=== PATIENT | female | born 1970 | race Hispanic/Latino ===

== ENCOUNTER 2018-06-04 21:09 | Emergency (ER) | payer OTHER ==
[2018-06-04 21:21] VITALS: TEMP 98.6
[2018-06-04] MEDS ORDERED: DiphenhydrAMINE 50 mg/ml Inj IVP STA (21:51)
[2018-06-04] MEDS ORDERED: Lactated Ringer's 1,000 ML IV ONE (21:52)
[2018-06-04] MEDS ORDERED: DiphenhydrAMINE 50 mg/ml Inj ONE (21:58)
--- NOTE | 2018-06-04 22:00 | C.PDOC ---
History Of Present Illness 47 year old female presents to the ER with a complaint of headache and diarrhea for the past 2 days. Patient states she has had a left sided headache initially with multiple episodes of watery non-bloody diarrhea, she had 8 episodes that first day that resolved for a day then recurred. Patient reports she has also had associated with nausea, decreased appetite, subjective fever, lightheadedness, generalized malaise, and fatigue. She has been taking tylenol for the headache with mild relief and initially took imodium for the diarrhea with no relief, she then tried pepto with some relief. Denies chills, vomiting, abdominal pain, recent travel, recent sick contact, or recent use of antibiotics. Patient saw her PMD who advised her to come to the ER if symptoms worsen. PMHx: Negative Surgical Hx: nasal septum surgery Family Hx: HTN Social Hx: Nonsmoker, 1-2 glasses of wine daily, no substance abuse PMD: Dr. Gato Damon Time Seen by Provider: 06/04/18 21:27 Chief Complaint (Nursing): Headache History Per: Patient History/Exam Limitations: no limitations Onset/Duration Of Symptoms: Days (2) Current Symptoms Are (Timing): Still Present Preceeding Symptoms: None Associated Symptoms: Other (nausea, decreased appetite, subjective fever, lightheadedness, generalized malaise, and fatigue) Recent travel outside of the [place]: No Past Medical History Reviewed: Historical Data, Nursing Documentation, Vital Signs Vital Signs: Last Vital Signs Temp 98.6 F 06/04/18 21:15 Pulse 81 06/04/18 21:15 Resp 18 06/04/18 21:15 BP 164/100 H 06/04/18 21:15 Pulse Ox 99 06/04/18 21:15 - Medical History PMH: No Chronic Diseases Other Surgeries: Nasal septum surgery Family History: States: Unknown Family Hx - Social History Hx Tobacco Use: No Hx Alcohol Use: Yes (1-2 glasses of wine daily) Hx Substance Use: No - Immunization History Hx Tetanus Toxoid Vaccination: Yes Hx Influenza Vaccination: Yes Hx Pneumococcal Vaccination: No Review Of Systems Except As Marked, All Systems Reviewed And Found Negative. Constitutional: Positive for: Fever (Subjective), Malaise, Other (Decreased appetite, Fatigue) Cardiovascular: Positive for: Light Headedness Gastrointestinal: Positive for: Nausea, Diarrhea Neurological: Positive for: Headache Physical Exam - Physical Exam Appears: No Acute Distress, Other (Mild painful distress) Skin: Warm, Dry, Pale Head: Normacephalic, Tenderness Eye(s): bilateral: PERRL, EOMI Oral Mucosa: Dry Throat: Normal, No Erythema, No Exudate Neck: Normal ROM, Trachea Midline, Supple, Other (Tenderness to palpation along left posterior cervical chain and left trapezius. No meningismus.) Lymphatic: No Adenopathy Chest: Symmetrical Cardiovascular: Rhythm Regular, No Murmur Respiratory: No Normal Breath Sounds, No Wheezing Gastrointestinal/Abdominal: Soft, No Tenderness, No Mass, No Distention, No Guarding, No Rebound Back: Normal Inspection, No Decreased ROM Extremity: Normal ROM, No Deformity Neurological/Psych: Oriented x3, Normal Speech, Normal Motor, Normal Sensation ED Course And Treatment - Laboratory Results Result Diagrams: 06/04/18 22:06 06/04/18 22:06 O2 Sat by Pulse Oximetry: 99 (Room air) Pulse Ox Interpretation: Normal - CT Scan/US CT Head Other Rad Studies (CT/US): Read By Radiologist, Radiology Report Reviewed CT/US Interpretation: EXAM: CT Head Without IV contrast. CLINICAL HISTORY: HEADACHE. TECHNIQUE: Axial computed tomography images of the head/brain without intravenous contrast. 1018 mGy-cm. COMPARISON: None provided. FINDINGS: BRAIN. No acute intraparenchymal hemorrhage. No mass lesion. No CT evidence for acute territorial infarct. No midline shift or extra-axial collections. Bilateral basal ganglia calcifications are seen. VENTRICLES: No hydrocephalus. ORBITS: The orbits are unremarkable. SINUSES AND MASTOIDS: The paranasal sinuses and mastoid air cells are clear. BONES: No fracture. IMPRESSION: No acute intracranial abnormality. . Electronically signed on Jun 04, 2018 10:29:01 PM EDT by: Amadeo Rubio M.D., DHARMESH Certified By ABR & CBCCT. Fellowship Trained MRI and CT Specialist Medical Decision Making Medical Decision Making: Impression: Headache and Diarrhea. Differential diagnosis includes but not limited to: Viral syndrome, atypical migraine, dehydration, electrolyte abnormality, gastroenteritis. Progress: CT head Blood work Urinalysis Benadryl LR IV Reglan Tylenol 1130 CT no acute findings. Labs unremarkable On reeval pt feeling better and eager to go home DW pt findings and plan of care. Disposition - Disposition Referrals: Gato Damon [Medical Doctor] - Disposition: HOME/ ROUTINE Disposition Time: 23:20 Condition: IMPROVED Additional Instructions: FOLLOW UP WITH DR DAMON IN 24-48 HOURS FOR REEVALUATION Prescriptions: Ibuprofen [Motrin Tab] 600 mg PO Q8 PRN #30 tab PRN Reason: Pain, Moderate (4-7) Metoclopramide [Reglan] 1 tab PO TID PRN #15 tab PRN Reason: Nausea or Severe headache Saccharomyces Boulardi [Florastor] 500 mg PO BID #28 cap Instructions: Diarrhea in Adolescents and Adults, Headache, Adult (DC) Forms: Work Excuse - Clinical Impression Clinical Impression: Headache, Diarrhea - Scribe Statement The provider has reviewed the documentation as recorded by the Scribe Jared Lo All medical record entries made by the Scribe were at my direction and personally dictated by me. I have reviewed the chart and agree that the record accurately reflects my personal performance of the history, physical exam, medical decision making, and the department course for this patient. I have also personally directed, reviewed, and agree with the discharge instructions and d isposition.
[2018-06-04 22:12] LABS: SQUAMOUS EPITHIAL 4 /hpf (0-5); URINE BACTERIA RARE (<OCC); URINE BILIRUBIN NEGATIVE (NEGATIVE); URINE CLARITY Clear (Clear); URINE COLOR Straw (YELLOW); URINE GLUCOSE (UA) NORMAL (Normal); URINE LEUKOCYTE ESTERASE NEG Leu/uL (Negative); URINE PROTEIN NEGATIVE (NEGATIVE); URINE UROBILINOGEN NORMAL mg/dL (0.2-1.0)
[2018-06-04 22:13] LABS: HCG,QUALITATIVE URINE NEGATIVE (NEGATIVE); URINE BLOOD TRACE (NEGATIVE)
[2018-06-04 22:16] LABS: BASO % 0.4 % (0.0-2.0); EOS # 0.1 K/uL (0.0-0.7); EOS % 1.6 % (0.0-4.0); HEMOGLOBIN 13.9 g/dL (11.0-16.0); LYMPH # 1.7 K/uL (1.0-4.3); MEAN CELL VOLUME 88.7 fL (81.0-99.0); MEAN CORPUSCULAR HEMOGLOBIN 30.5 pg (27.0-31.0); MEAN CORPUSCULAR HGB CONC 34.4 g/dL (33.0-37.0); MEAN PLATELET VOLUME 8.8 fL (7.2-11.7); MONO # 0.6 K/uL (0.0-0.8); MONO % 10.3 % (0.0-10.0); NEUT % 56.7 % (50.0-75.0); NRBC % 0.1 % (0.0-2.0); RBC 4.56 Mil/uL (3.80-5.20); RED CELL DISTRIBUTION WIDTH 12.6 % (11.5-14.5); WHITE BLOOD COUNT 5.4 K/uL (4.8-10.8)
[2018-06-04 22:31] LABS: ALB/GLOB RATIO 1.5 (1.0-2.1); ALBUMIN 4.5 g/dL (3.5-5.0); ALT/SGPT 9 U/L (9-52); AST/SGOT 22 U/L (14-36); BLOOD UREA NITROGEN 10 mg/dL (7-17); CALCIUM 9.3 mg/dl (8.6-10.4); GFR NON-AFRICAN AMERICAN > 60; LIPASE 55 U/L (23-300)
[2018-06-04 23:04] VITALS: BP 148/79; PULSE 68; RESP 14
[2018-06-04 23:22] VITALS: O2SAT 99
--- NOTE | 2018-06-05 08:06 | CT ---
Date of service: 06/04/2018 PROCEDURE: CT HEAD WITHOUT CONTRAST. HISTORY: headache COMPARISON: None available. TECHNIQUE: Axial computed tomography images were obtained through the head/brain without intravenous contrast. Radiation dose: Total exam DLP = 1018.98 mGy-cm. This CT exam was performed using one or more of the following dose reduction techniques: Automated exposure control, adjustment of the mA and/or kV according to patient size, and/or use of iterative reconstruction technique. FINDINGS: HEMORRHAGE: No intracranial hemorrhage. BRAIN: No mass effect or edema. No atrophy or chronic microvascular ischemic changes. Bilateral basal ganglia calcifications. VENTRICLES: Unremarkable. No hydrocephalus. CALVARIUM: Small bony protuberance/exostosis emanating from the right frontal cranium. PARANASAL SINUSES: Unremarkable as visualized. No significant inflammatory changes. MASTOID AIR CELLS: Unremarkable as visualized. No inflammatory changes. OTHER FINDINGS: None. IMPRESSION: No acute intracranial abnormality. If symptoms persists, consider correlation with MRI. These findings were preliminarily reported at 10:29 p.m. on 06/04/[address] Amadeo Rubio from [employer].
== END 2018-06-04 23:56 | disposition home or self-care (01) ==
LOC: C.ER 21:09
DX: R51 Headache (principal); R19.7 Diarrhea, unspecified
CPT/HCPCS: 70450; 80053; 81001; 82948; 83605; 83690; 83735; 84100; 84703; 85025; 96361; 96374; 96375; 99285; J1200; J2765; J7120

== ENCOUNTER 2018-06-05 21:02 | Emergency (ER) | payer OTHER ==
[2018-06-05 21:10] VITALS: TEMP 97.5
[2018-06-05] MEDS ORDERED: DiphenhydrAMINE 50 mg/ml Inj IVP STA (22:11)
[2018-06-05] MEDS ORDERED: Sodium Chloride 0.9% 1,000 ML IV STA (22:11)
[2018-06-05] MEDS ORDERED: DiphenhydrAMINE 50 mg/ml Inj ONE (22:19)
[2018-06-05] MEDS ORDERED: Sodium Chloride 0.9% 1,000 ML ONE (22:20)
[2018-06-05 22:35] LABS: BASO % 0.4 % (0.0-2.0); EOS % 0.5 % (0.0-4.0); HEMOGLOBIN 14.4 g/dL (11.0-16.0); LYMPH # 0.9 K/uL (1.0-4.3); LYMPH % 12.8 % (20.0-40.0); MEAN CELL VOLUME 87.9 fL (81.0-99.0); MEAN CORPUSCULAR HEMOGLOBIN 30.3 pg (27.0-31.0); MEAN CORPUSCULAR HGB CONC 34.5 g/dL (33.0-37.0); MEAN PLATELET VOLUME 8.9 fL (7.2-11.7); MONO # 0.5 K/uL (0.0-0.8); MONO % 6.9 % (0.0-10.0); NEUT # 5.6 K/uL (1.8-7.0); NEUT % 79.4 % (50.0-75.0); NRBC % 0.1 % (0.0-2.0); RBC 4.77 Mil/uL (3.80-5.20); RED CELL DISTRIBUTION WIDTH 12.5 % (11.5-14.5)
--- NOTE | 2018-06-05 22:39 | C.PDOC ---
History Of Present Illness 47 year old female with no PMHx presents to the ER with a complaint of a headache for the past 4 days. Patient describes the pain is left sided and severe with photophobia, nausea, and vomiting. Initially the symptoms began with diarrhea but that has since resolved. Patient was seen here yesterday for the same symptoms, she states she felt "a little better" prior to discharge after ER treatment but headache continued today. Denies fever, nuchal rigidity, vision changes, recent travel, bloody diarrhea, or recent antibiotic use. Time Seen by Provider: 06/05/18 21:40 Chief Complaint (Nursing): Headache History Per: Patient History/Exam Limitations: no limitations Onset/Duration Of Symptoms: Days Current Symptoms Are (Timing): Still Present Quality: Other (Left sided, Severe) Associated Symptoms: Photophobia, Nausea, Vomiting Recent travel outside of the [place]: No Past Medical History Reviewed: Historical Data, Nursing Documentation, Vital Signs Vital Signs: Last Vital Signs Temp 97.5 F L 06/05/18 21:07 Pulse 84 06/05/18 21:07 Resp 14 06/05/18 21:07 BP 174/96 H 06/05/18 21:07 Pulse Ox 97 06/05/18 21:07 Family History: States: Unknown Family Hx - Social History Hx Tobacco Use: No Hx Alcohol Use: Yes (1-2 glasses of wine daily) Hx Substance Use: No - Immunization History Hx Tetanus Toxoid Vaccination: Yes Hx Influenza Vaccination: Yes Hx Pneumococcal Vaccination: No Review Of Systems Except As Marked, All Systems Reviewed And Found Negative. Eyes: Positive for: Other (Photophobia) Gastrointestinal: Positive for: Nausea, Vomiting Neurological: Positive for: Headache Physical Exam - Physical Exam Additional Physical Exam Comments: Constitutional: Uncomfortable appearing. Sitting in room with lights off. Head: Normocephalic. Atraumatic. Eyes: PERRL. ENT: Moist mucous membranes. Neck: Supple. Cardiovascular: Regular rate. Radial pulse 2+ bilaterally. Chest: No tenderness. Respiratory: Clear to auscultation bilaterally. GI: Soft. Nontender. Nondistended. Back: No CVA tenderness. Musculoskeletal: No tenderness or swelling of extremities. Skin: No rash. Neurologic: Alert, no focal deficit. Oriented x 3. Cranial nerves II-XII intact. Sensation to light touch intact bilaterally. Motor 5/5 x 4. Finger to nose, heel to pitts normal. ED Course And Treatment - Laboratory Results Result Diagrams: 06/05/18 22:30 06/05/18 22:30 O2 Sat by Pulse Oximetry: 97 (Room air) Pulse Ox Interpretation: Normal Medical Decision Making Medical Decision Making: Patient slept in ED for some time. States she feels better at this time and is comfortable to go home. Advised to f/u with neurology. Disposition - Disposition Referrals: Miguel Kendall MD [Staff Provider] - Disposition: HOME/ ROUTINE Disposition Time: 23:41 Condition: STABLE Instructions: Headache, Adult, Migraine Headaches in Adults Forms: [facility] ([place]), Work Excuse - Clinical Impression Clinical Impression: Headache - Scribe Statement The provider has reviewed the documentation as recorded by the Scribe Jared Lo All medical record entries made by the Scribe were at my direction and personally dictated by me. I have reviewed the chart and agree that the record accurately reflects my personal performance of the history, physical exam, medical decision making, and the department course for this patient. I have also personally directed, reviewed, and agree with the discharge instructions and disposition.
[2018-06-05 22:52] LABS: ALB/GLOB RATIO 1.5 (1.0-2.1); ALBUMIN 4.6 g/dL (3.5-5.0); ALT/SGPT 17 U/L (9-52); AST/SGOT 17 U/L (14-36); BLOOD UREA NITROGEN 9 mg/dL (7-17); CALCIUM 9.6 mg/dl (8.6-10.4); GFR NON-AFRICAN AMERICAN > 60; LIPASE 56 U/L (23-300)
[2018-06-05 23:23] VITALS: BP 144/87; PULSE 69; RESP 15
[2018-06-05 23:42] VITALS: O2SAT 97
== END 2018-06-05 23:48 | disposition home or self-care (01) ==
LOC: C.ER 21:02
DX: R51 Headache (principal)
CPT/HCPCS: 80053; 83690; 85025; 96361; 96374; 96375; 99285; J1200; J1885; J2765; J7030

== ENCOUNTER 2018-06-06 23:37 | Inpatient (IN) | payer OTHER ==
[2018-06-06] MEDS ORDERED: Iodixanol 320 MG/ML 100 ML BOTTLE IV ONE (23:51)
[2018-06-06 23:57] LABS: BASO # 0.1 K/uL (0.0-0.2); BASO % 1.3 % (0.0-2.0); EOS % 0.6 % (0.0-4.0); HEMOGLOBIN 14.5 g/dL (11.0-16.0); LYMPH # 1.9 K/uL (1.0-4.3); LYMPH % 29.8 % (20.0-40.0); MEAN CELL VOLUME 87.4 fL (81.0-99.0); MEAN CORPUSCULAR HEMOGLOBIN 30.4 pg (27.0-31.0); MEAN CORPUSCULAR HGB CONC 34.8 g/dL (33.0-37.0); MEAN PLATELET VOLUME 8.7 fL (7.2-11.7); MONO # 0.7 K/uL (0.0-0.8); MONO % 11.6 % (0.0-10.0); NEUT # 3.6 K/uL (1.8-7.0); NEUT % 56.7 % (50.0-75.0); RBC 4.77 Mil/uL (3.80-5.20); RED CELL DISTRIBUTION WIDTH 12.4 % (11.5-14.5); WHITE BLOOD COUNT 6.3 K/uL (4.8-10.8)
[2018-06-07 00:03] LABS: INR 1.1; PROTHROMBIN TIME 11.9 SECONDS (9.7-12.2)
[2018-06-07 00:10] LABS: ALB/GLOB RATIO 1.6 (1.0-2.1); ALBUMIN 4.8 g/dL (3.5-5.0); ALT/SGPT 19 U/L (9-52); AST/SGOT 16 U/L (14-36); BLOOD UREA NITROGEN 10 mg/dL (7-17); CALCIUM 9.7 mg/dl (8.6-10.4); GFR NON-AFRICAN AMERICAN > 60; HDL CHOLESTEROL 60 mg/dL (30-70)
[2018-06-07 00:21] LABS: B-TYPE NATRIURETIC PEPTIDE 384 pg/mL (0-450); CK-MB 0.55 ng/mL (0.0-3.38); LDL CHOLESTEROL 137 mg/dL (0-129)
--- NOTE | 2018-06-07 00:39 | CP.PCM.CON ---
History of Present Illness - History of Present Illness History of Present Illness: 47 year old female presents to [facility] with c/o right arm and right leg weakness and paresthesias (+)Started 30-40 minutes [employer](+) left sided headache associated with nausea. (+) headache intermittently x 2 days denies vomiting, change in vision, slurred speech, chest pain, or SOB. Pmx: denies Psurg hx: deneis Sh: denies smoking, quit 20 yrs ago, denies any drug use, works in book publishing Review of Systems - Review of Systems Review of Systems: (+)headaaches, (+) left arm weakness, all other systems nagative Past Patient History - Tetanus Immunizations Tetanus Immunization: Unknown - Past Social History Smoking Status: Never Smoked - CARDIAC Hx Cardiac Disorders: No - PULMONARY Hx Respiratory Disorders: No - NEUROLOGICAL Hx Neurological Disorder: No - PSYCHIATRIC Hx Psychophysiologic Disorder: Yes Hx Anxiety: Yes Hx Substance Use: No - SURGICAL HISTORY Hx Surgeries: No - ANESTHESIA Hx Anesthesia: No Meds Allergies/Adverse Reactions: Allergies Allergy/AdvReac Type Severity Reaction Status Date / Time tree nut Allergy Verified 06/06/18 23:41 Physical Exam - Head Exam Head Exam: ATRAUMATIC, NORMAL INSPECTION, NORMOCEPHALIC - Eye Exam Eye Exam: EOMI - ENT Exam ENT Exam: Mucous Membranes Moist - Respiratory Exam Respiratory Exam: Clear to Auscultation Bilateral, NORMAL BREATHING PATTERN - Cardiovascular Exam Cardiovascular Exam: REGULAR RHYTHM, +S1, +S2 - GI/Abdominal Exam GI & Abdominal Exam: Soft - Extremities Exam Extremities exam: Positive for: normal inspection - Expanded Upper Extremities Exam Right Shoulder exam: absent: ecchymosis Upper Arm exam: absent: dislocation - Neurological Exam Neurological exam: Alert, CN II-XII Intact, Oriented x3 Additional comments: right arm motor 0+, left arm 4+ motor - Skin Skin Exam: Normal Color Results - Labs Result Diagrams: 06/06/18 23:53 06/06/18 23:53 Labs: Laboratory Results - last 24 hr 06/06/18 06/06/18 06/06/18 23:43 23:52 23:53 WBC 6.3 RBC 4.77 Hgb 14.5 Hct 41.7 MCV 87.4 MCH 30.4 MCHC 34.8 RDW 12.4 Plt Count 223 MPV 8.7 Neut % (Auto) 56.7 Lymph % (Auto) 29.8 [place] % (Auto) 11.6 H Eos % (Auto) 0.6 Baso % (Auto) 1.3 Neut # (Auto) 3.6 Lymph # (Auto) 1.9 [place] # (Auto) 0.7 Eos # (Auto) 0.0 Baso # (Auto) 0.1 PT INR APTT Sodium Potassium Chloride Carbon Dioxide Anion Gap BUN Creatinine Est GFR ( Amer) Est GFR (Non-Af Amer) POC Glucose (mg/dL) 92 Random Glucose Hemoglobin A1c Calcium Total Bilirubin AST ALT Alkaline Phosphatase Total Creatine Kinase CK-MB (Mass) Troponin I NT-Pro-B Natriuret Pep Total Protein Albumin Globulin Albumin/Globulin Ratio Triglycerides Cholesterol LDL Cholesterol Direct HDL Cholesterol Blood Type A POSITIVE 06/06/18 06/06/18 06/06/18 23:53 23:53 23:53 WBC RBC Hgb Hct MCV MCH MCHC RDW Plt Count MPV Neut % (Auto) Lymph % (Auto) [place] % (Auto) Eos % (Auto) Baso % (Auto) Neut # (Auto) Lymph # (Auto) [place] # (Auto) Eos # (Auto) Baso # (Auto) PT 11.9 INR 1.1 APTT 33 Sodium 141 Potassium 3.7 Chloride 101 Carbon Dioxide 27 Anion Gap 17 BUN 10 Creatinine 0.6 L Est GFR ( Amer) > 60 Est GFR (Non-Af Amer) > 60 POC Glucose (mg/dL) Random Glucose 120 H Hemoglobin A1c 5.1 Calcium 9.7 Total Bilirubin 0.5 AST 16 ALT 19 Alkaline Phosphatase 72 Total Creatine Kinase 60 CK-MB (Mass) 0.55 Troponin I < 0.0120 NT-Pro-B Natriuret Pep 384 Total Protein 7.7 Albumin 4.8 Globulin 3.0 Albumin/Globulin Ratio 1.6 Triglycerides 126 D Cholesterol 223 H LDL Cholesterol Direct 137 H HDL Cholesterol 60 Blood Type Assessment & Plan - Assessment and Plan (Free Text) Assessment: SAH: avoid antiplatelets, avoid anticoagulants -keep SBP <140, nicardipene ggt -NPO -IVF -MRI pending -neuro check q1hrs -repeat imaging if neuro exam worsens -check ESR/CRP/HSV/lyme, eliana/rf, rpr -dvt ppx scds -pud ppx pepcid -utox pending -neuro consult, neurosurgery Patient remains, hemodynamically stable -intuabte if GCS <9 - Date & Time Date: 06/07/18 Time: 01:08
--- NOTE | 2018-06-07 00:51 | C.PDOC ---
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 Patient also complaints of a left sided headache associated with nausea. She has been having a headache intermittently over the last 2 days but no extremity weakness until this evening. Denies vomiting, change in vision, slurred speech, chest pain, or SOB. Chief Complaint (Nursing): Weakness/Neurological Deficit History Per: Patient History/Exam Limitations: no limitations Onset/Duration Of Symptoms: Mins, Sudden Onset Current Symptoms Are (Timing): Still Present Preceeding Symptoms: None Associated Symptoms: Nausea, Extremity Weakness. denies: Photophobia, Blurred Vision, Vomiting, Other (Chest pain, SOB, slurred speech) Recent travel outside of the [place]: No Past Medical History Reviewed: Historical Data, Nursing Documentation, Vital Signs Vital Signs: Last Vital Signs Temp Pulse 84 06/07/18 00:44 Resp 14 06/07/18 00:44 BP 147/98 H 06/07/18 00:44 Pulse Ox 98 06/07/18 00:44 - Medical History PMH: Anxiety Family History: States: Unknown Family Hx - Social History Hx Tobacco Use: No Hx Alcohol Use: Yes (1-2 glasses of wine daily) Hx Substance Use: No - Immunization History Hx Tetanus Toxoid Vaccination: Yes Hx Influenza Vaccination: Yes Hx Pneumococcal Vaccination: No Review Of Systems Constitutional: Negative for: Fever, Chills Eyes: Negative for: Vision Change Cardiovascular: Negative for: Chest Pain, Palpitations Respiratory: Negative for: Cough, Shortness of Breath Gastrointestinal: Positive for: Nausea. Negative for: Vomiting Genitourinary: Negative for: Dysuria, Hematuria Neurological: Positive for: Weakness (Right arm and leg w/ paresthesias), Headache Physical Exam - Physical Exam Appears: Non-toxic Skin: Normal Color, Warm, Dry Head: Atraumatic, Normacephalic Eye(s): bilateral: Normal Inspection, PERRL, EOMI Ear(s): Bilateral: Normal Oral Mucosa: Moist Neck: Normal, No Midline Cervical Tenderness, No Paracervical Tenderness, Supple Chest: Symmetrical, No Tenderness Cardiovascular: Rhythm Regular Respiratory: Normal Breath Sounds, No Rales, No Rhonchi, No Wheezing Gastrointestinal/Abdominal: Soft, No Tenderness Back: No Vertebral Tenderness, No Paraspinal Tenderness Pulses: Left Radial: Normal, Right Radial: Normal, Left Dorsalis Pedis: Normal, Right Dorsalis Pedis: Normal Neurological/Psych: Oriented x3, Normal Speech, Other (Right upper extremity motor 0/5, right lower extremity motor 0/5. Left upper extremity motor 5/5, left lower extremity motor 5/5. Right sided subjective numbness.) ED Course And Treatment - Laboratory Results Result Diagrams: 06/06/18 23:53 06/06/18 23:53 O2 Sat by Pulse Oximetry: 98 (Room air) Pulse Ox Interpretation: Normal Progress Note: Code stroke called immediately at 2340. At [address] Kendall called after CT was completed and showed hemorrhagic bleeding. 0015 Dr Kendall called back recommending repeat CT at 1000 with neurosurgery consult in the morning but no need for intervention at this time, maintain systolic BP from 140-160, and he does not recommend antiseizure medications at this time. Case was discussed with Dr. Andrew Magallanes who accepts patient for admission, Dr. Marni Haywood who accepts patient to the ICU, and Dr. Srinivasan neurosurgery oncall. Critical Care Time - Critical Care Note Total Time (in mins): 60 Documented critical care: time excludes all time spent performing seperately billable procedures. NIHSS Stroke Scale - Date/Time Evaluation Performed Date Performed: 06/06/18 Time Performed: 23:40 When Was NIHSS Performed: Baseline - How Severe is the Stoke Level of Consciousness: 0=Alert LOC to Questions: 0=Both comments correct LOC to commands: 0=Obeys both correctly Best Gaze: 0=Normal Visual: 0=No visual loss Facial: 0=Normal Motor Arm - Left: 0=No drift Motor Arm - Right: 4=No movement Motor Leg - Left: 0=No drift Motor Leg - Right: 4=No movement Limb Ataxia: 2=Present both Sensory: 1=Mild to moderate loss Best Language: 0=No aphasia Dysarthia: 0=Normal articulation Extinction & Inattention (Neglect): 0=Normal, no object Score: 11 Severity Of Stroke: 5-15= Moderate Stroke rTPA Inclusion/Exclusion - Refusal of Treatment Patient Refused Treatment: No - Inclusion Criteria for Altepase Patient is 18 years or Older: Yes The Clinical Diagnosis of Ischemic Stroke That is Causing a Potentially Disabling Neurological Deficit: No Time of Onset is Well Established to be Less Than 270 Minute Before Treatment Would Begin: Yes Risk/Benefit Discussed With Patient/Family Member Present: Yes - Exclusion Criteria for Altepase Evidence of an Intracranial Hemorrhage: Yes Disposition - Disposition Disposition: HOSPITALIZED Disposition Time: 00:00 Condition: SERIOUS - Clinical Impression Clinical Impression: Hemorrhagic cerebrovascular accident (CVA) - Scribe Statement The provider has reviewed the documentation as recorded by the Scribe Jared Lo All medical record entries made by the Scribe were at my direction and personally dictated by me. I have reviewed the chart and agree that the record accurately reflects my personal performance of the history, physical exam, medical decision making, and the department course for this patient. I have also personally directed, reviewed, and agree with the discharge instructions and disposition.
[2018-06-07] MEDS: niCARdipine IV 25 MG in Sodium Chloride 0.9% 240 ML IV SCH ×4 (01:09→15:30)
[2018-06-07] MEDS ORDERED: Acetaminophen IV 1,000 MG in Premixed IV 1 EA IV ONE (02:05)
[2018-06-07] MEDS: Sodium Chloride 0.9% 1,000 ML IV SCH ×2 (02:25→14:05)
[2018-06-07] MEDS ORDERED: HYDROmorphone 0.5 mg/0.5 ml ISec IVP STA (06:54)
[2018-06-07 06:56] LABS: URINE BILIRUBIN NEGATIVE (NEGATIVE); URINE BLOOD NEGATIVE (NEGATIVE); URINE CLARITY Clear (Clear); URINE COLOR Straw (YELLOW); URINE GLUCOSE (UA) NORMAL (Normal); URINE LEUKOCYTE ESTERASE NEG Leu/uL (Negative); URINE PROTEIN NEGATIVE (NEGATIVE); URINE UROBILINOGEN NORMAL mg/dL (0.2-1.0)
[2018-06-07 07:33] LABS: BARBITURATES, UR NEGATIVE (NEGATIVE); OPIATES, UR POSITIVE (NEGATIVE); PHENCYCLIDINE, UR NEGATIVE (NEGATIVE)
[2018-06-07 07:56] LABS: BENZODIAZEPINES, UR NEGATIVE (NEGATIVE)
--- NOTE | 2018-06-07 08:18 | CT ---
Date of service: 06/06/2018 PROCEDURE: CT HEAD WITHOUT CONTRAST. HISTORY: code stroke bed 5 COMPARISON: None available. TECHNIQUE: Axial computed tomography images were obtained through the head/brain without intravenous contrast. Radiation dose: Total exam DLP = 1076.57 mGy-cm. This CT exam was performed using one or more of the following dose reduction techniques: Automated exposure control, adjustment of the mA and/or kV according to patient size, and/or use of iterative reconstruction technique. FINDINGS: HEMORRHAGE: There is a 3.2 x 2.6 x 1.6 cm acute intraparenchymal hematoma in the left posterior frontal lobe. There is central low density within the hematoma suggestive of active bleeding. There is also associated subarachnoid hemorrhage in the left frontal and parietal lobe also extending to the sylvian fissure. BRAIN: There is mild surrounding vasogenic edema and mass effect on the inter hemispheric fissure with 2 mm midline shift from left to right without evidence for herniation. VENTRICLES: The ventricles are normal in size, shape and configuration. CALVARIUM: The skull base and calvarium are normal. PARANASAL SINUSES: Predominantly clear. MASTOID AIR CELLS: Predominantly clear. OTHER FINDINGS: None. IMPRESSION: Interval development of 3.2 x 2.6 x 1.6 cm acute intraparenchymal hematoma and presumable central active bleeding in the left posterior frontal lobe with associated significant frontal and parietal lobe subarachnoid hemorrhage. Mild associated vasogenic edema and mass effect on the inter hemispheric fissure with 2 mm midline shift from left to right without evidence for herniation or hydrocephalus. A preliminary report was provided by [facility].
[2018-06-07] MEDS ORDERED: HYDROmorphone 1 mg/ml ISec IVP ONE (09:15)
--- NOTE | 2018-06-07 09:32 | CT ---
PROCEDURE: CTA HEAD AND NECK WITH CONTRAST HISTORY: right-sided weakness COMPARISON: None available. TECHNIQUE: Initial noncontrast head CT was performed. Subsequently, CT angiogram of the head and neck were performed after the intravenous administration of 80 mL of Omnipaque 350. Contiguous 1.5mm thick images were obtained in the axial plane of the neck. 2-D coronal and sagittal MPR images were obtained. Imaging postprocessing was performed with 3-D images also obtained. A delayed contrast head CT was also obtained. This CT exam was performed using one or more of the following dose reduction techniques: Automated exposure control, adjustment of the mA and/or kV according to patient size, and/or use of iterative reconstruction technique. Contrast dose: 100 mL Visipaque 320 Radiation dose: Total exam DLP = 536.64 mGy-cm. FINDINGS: HEAD: Right: The intracranial internal carotid artery, and anterior and middle cerebral arteries are widely patent. The right A1 segment is hypoplastic, an anatomic variant. Left: The intracranial internal carotid artery, and anterior and middle cerebral arteries are widely patent. Posterior circulation: The visualized intracranial vertebral arteries, basilar artery and posterior cerebral arteries are widely patent. There is no endoluminal filling defect to suggest thrombus. There is no intracranial saccular aneurysm. NECK: There is a three vessel aortic arch. There is no stenosis at the origins of the great vessels at the level of the aortic arch. No atherosclerotic calcification or mural plaque present. Right Carotid: On the right, the common carotid, internal carotid and external carotid arteries are widely patent. There is no hemodynamically significant stenosis in the internal carotid artery by NASCET criteria. Left Carotid: On the left, the common carotid, internal carotid and external carotid arteries are widely patent. There is no hemodynamically significant stenosis in the internal carotid artery by NASCET criteria. The vertebral arteries are widely patent. The vertebral artery is hypoplastic, an anatomic variant. The visualized soft tissues of the neck are normal. The visualized brain and cervical spine are within normal limits. The lung apices are clear. IMPRESSION: 1. No evidence of endoluminal thrombus,occlusion or definite significant stenosis in the intracranial arteries. 2. No evidence of hemodynamically significant stenosis in the internal carotid arteries. 3. Patent bilateral vertebral arteries. A preliminary report was provided by [facility].
--- NOTE | 2018-06-07 10:41 | CP.PCM.PN ---
Subjective - Date & Time of Evaluation Date of Evaluation: 06/07/18 Time of Evaluation: 10:40 - Subjective Subjective: consult dicatated will check MRI /ct no surgery at this time Objective - Vital Signs/Intake and Output Vital Signs (last 24 hours): Temp Pulse Resp BP Pulse Ox 97.7 F 88 7 L 137/92 H 99 06/07/18 08:00 06/07/18 08:00 06/07/18 08:00 06/07/18 07:39 06/07/18 08:00 Intake and Output: 06/07/18 06/07/18 06:59 18:59 Intake Total 670 200 Output Total 520 130 Balance 150 70 - Medications Medications: Current Medications Famotidine (Pepcid) 20 mg IVP DAILY DEIRDRE Last Admin: 06/07/18 09:25 Dose: 20 mg Nicardipine HCl 25 mg/ Sodium (Chloride) 250 mls @ 50 mls/hr IV .Q5H DEIRDRE; Protocol Last Titration: 06/07/18 03:30 Dose: 0 mg/hr, 0 mls/hr Sodium Chloride (Sodium Chloride 0.9%) 1,000 mls @ 100 mls/hr IV .Q10H DEIRDRE Last Admin: 06/07/18 02:25 Dose: 100 mls/hr - Labs Labs: 06/06/18 23:53 06/06/18 23:53 PT 11.9 SECONDS (9.7-12.2) 06/06/18 23:53 INR 1.1 06/06/18 23:53 APTT 33 SECONDS (21-34) 06/06/18 23:53
--- NOTE | 2018-06-07 11:05 | MRI ---
Date of service: 06/07/2018 PROCEDURE: MR Angiography of the neck without contrast HISTORY: eval intracranial hemorrhage COMPARISON: None available. TECHNIQUE: 3D [id number] angiography of the neck was performed. Rotating maximum intensity projection images of the cervical carotid and vertebral arteries were generated. The origins of the common carotid arteries were not visualized, which is a limitation inherent to the non-contrast time of flight technique. FINDINGS: RIGHT CAROTID ARTERIES: Common Carotid Artery: Normal. Carotid Bifurcation: Normal. Internal Carotid Artery:Normal. External Carotid Artery (proximal branches): Normal. LEFT CAROTID ARTERIES: Common Carotid Artery: Normal. Carotid Bifurcation: Normal. Internal Carotid Artery:Normal. External Carotid Artery (proximal branches): Normal. VERTEBRAL ARTERIES: Right Vertebral Artery: Normal. Left Vertebral Artery: Normal. OTHER FINDINGS: None. IMPRESSION: Normal MR Angiography of the neck.
--- NOTE | 2018-06-07 11:16 | CP.CCUPN ---
<Javier Phillips - Last Filed: 06/07/18 14:29> CCU Objective - Vital Signs / Intake & Output Vital Signs (Last 4 hours): Vital Signs Temp Pulse Resp BP Pulse Ox 06/07/18 12:39 70 9 L 152/87 H 98 06/07/18 12:00 97.7 F 73 12 95 06/07/18 11:39 77 11 L 155/89 H 96 06/07/18 11:01 75 9 L 162/87 H Intake and Output (Last 8hrs): Intake & Output 06/06/18 06/07/18 06/07/18 22:59 06:59 14:59 Intake Total 670 200 Output Total 520 130 Balance 150 70 Weight 157 lb Intake: IV 70 Intake, IV Amount 600 200 Left Antecubital 100 0 Left Hand 500 200 Output: Urine 520 130 Urethral (Wynn) 520 130 Stool 0 0 Other: Voiding Method Indwelling Catheter - Medications Active Medications: Active Medications Generic Name Dose Route Start Last Admin Trade Name Freq PRN Reason Stop Dose Admin Famotidine 20 mg 06/07/18 10:00 06/07/18 09:25 Pepcid IVP 20 mg DAILY DEIRDRE Administration Nicardipine HCl 25 mg/ Sodium 250 mls @ 50 mls/hr 06/07/18 00:45 06/07/18 03:30 Chloride IV 0 mg/hr .Q5H DEIRDRE 0 mls/hr Titration Protocol 5 MG/HR Sodium Chloride 1,000 mls @ 100 mls/hr 06/07/18 02:15 06/07/18 02:25 Sodium Chloride 0.9% IV 100 mls/hr .Q10H DEIRDRE Administration Ondansetron HCl 4 mg 06/07/18 13:55 06/07/18 14:05 Zofran Inj IVP 4 mg Q6H PRN Administration Nausea/Vomiting - Patient Studies Lab Studies: Lab Studies 06/07/18 06/07/18 06/07/18 Range/Units 06:51 04:35 04:32 WBC (4.8-10.8) K/uL RBC (3.80-5.20) Mil/uL Hgb (11.0-16.0) g/dL Hct (34.0-47.0) % MCV (81.0-99.0) fL MCH (27.0-31.0) pg MCHC (33.0-37.0) g/dL RDW (11.5-14.5) % Plt Count (130-400) K/uL MPV (7.2-11.7) fL Neut % (Auto) (50.0-75.0) % Lymph % (Auto) (20.0-40.0) % [place] % (Auto) (0.0-10.0) % Eos % (Auto) (0.0-4.0) % Baso % (Auto) (0.0-2.0) % Neut # (Auto) (1.8-7.0) K/uL Lymph # (Auto) (1.0-4.3) K/uL [place] # (Auto) (0.0-0.8) K/uL Eos # (Auto) (0.0-0.7) K/uL Baso # (Auto) (0.0-0.2) K/uL ESR 12 (0-20) mm/hr PT (9.7-12.2) SECONDS INR APTT (21-34) SECONDS Sodium (132-148) mmol/L Potassium (3.6-5.2) mmol/L Chloride (98-107) mmol/L Carbon Dioxide (22-30) mmol/L Anion Gap (10-20) BUN (7-17) mg/dL Creatinine (0.7-1.2) mg/dL Est GFR ( Amer) Est GFR (Non-Af Amer) POC Glucose (mg/dL) (65-110) mg/dL Random Glucose (65-105) mg/dL Hemoglobin A1c (4.2-6.5) % Calcium (8.6-10.4) mg/dl Total Bilirubin (0.2-1.3) mg/dL AST (14-36) U/L ALT (9-52) U/L Alkaline Phosphatase (38-126) U/L Total Creatine Kinase (30-135) U/L CK-MB (Mass) (0.0-3.38) ng/mL Troponin I (0.00-0.120) ng/mL C-Reactive Protein (0.0-9.9) mg/L NT-Pro-B Natriuret Pep (0-450) pg/mL Total Protein (6.3-8.3) g/dL Albumin (3.5-5.0) g/dL Globulin (2.2-3.9) gm/dL Albumin/Globulin Ratio (1.0-2.1) Triglycerides (0-149) mg/dL Cholesterol (0-199) mg/dL LDL Cholesterol Direct (0-129) mg/dL HDL Cholesterol (30-70) mg/dL Urine Color Straw (YELLOW) Urine Clarity Clear (Clear) Urine pH 7.0 (5.0-8.0) Ur Specific [place] 1.039 H (1.003-1.030) Urine Protein Negative (NEGATIVE) mg/dL Urine Glucose (UA) Normal (Normal) mg/dL Urine Ketones Trace (NEGATIVE) mg/dL Urine Blood Negative (NEGATIVE) Urine Nitrate Negative (NEGATIVE) Urine Bilirubin Negative (NEGATIVE) Urine Urobilinogen Normal (0.2-1.0) mg/dL Ur Leukocyte Esterase Neg (Negative) Dandre/uL Urine WBC (Auto) < 1 (0-5) /hpf Urine RBC (Auto) 1 (0-3) /hpf Urine Opiates Screen Positive H (NEGATIVE) Urine Methadone Screen Negative (NEGATIVE) Ur Barbiturates Screen Negative (NEGATIVE) Ur Phencyclidine Scrn Negative (NEGATIVE) Ur Amphetamines Screen Negative (NEGATIVE) U Benzodiazepines Scrn Negative (NEGATIVE) U Oth Cocaine Metabols Negative (NEGATIVE) U Cannabinoids Screen Negative (NEGATIVE) Blood Type Antibody Screen 06/07/18 06/07/18 06/06/18 Range/Units 04:32 03:34 23:53 WBC (4.8-10.8) K/uL RBC (3.80-5.20) Mil/uL Hgb (11.0-16.0) g/dL Hct (34.0-47.0) % MCV (81.0-99.0) fL MCH (27.0-31.0) pg MCHC (33.0-37.0) g/dL RDW (11.5-14.5) % Plt Count (130-400) K/uL MPV (7.2-11.7) fL Neut % (Auto) (50.0-75.0) % Lymph % (Auto) (20.0-40.0) % [place] % (Auto) (0.0-10.0) % Eos % (Auto) (0.0-4.0) % Baso % (Auto) (0.0-2.0) % Neut # (Auto) (1.8-7.0) K/uL Lymph # (Auto) (1.0-4.3) K/uL [place] # (Auto) (0.0-0.8) K/uL Eos # (Auto) (0.0-0.7) K/uL Baso # (Auto) (0.0-0.2) K/uL ESR (0-20) mm/hr PT (9.7-12.2) SECONDS INR APTT (21-34) SECONDS Sodium (132-148) mmol/L Potassium (3.6-5.2) mmol/L Chloride (98-107) mmol/L Carbon Dioxide (22-30) mmol/L Anion Gap (10-20) BUN (7-17) mg/dL Creatinine (0.7-1.2) mg/dL Est GFR ( Amer) Est GFR (Non-Af Amer) POC Glucose (mg/dL) 137 H (65-110) mg/dL Random Glucose (65-105) mg/dL Hemoglobin A1c 5.1 (4.2-6.5) % Calcium (8.6-10.4) mg/dl Total Bilirubin (0.2-1.3) mg/dL AST (14-36) U/L ALT (9-52) U/L Alkaline Phosphatase (38-126) U/L Total Creatine Kinase (30-135) U/L CK-MB (Mass) (0.0-3.38) ng/mL Troponin I (0.00-0.120) ng/mL C-Reactive Protein < 5.00 (0.0-9.9) mg/L NT-Pro-B Natriuret Pep (0-450) pg/mL Total Protein (6.3-8.3) g/dL Albumin (3.5-5.0) g/dL Globulin (2.2-3.9) gm/dL Albumin/Globulin Ratio (1.0-2.1) Triglycerides (0-149) mg/dL Cholesterol (0-199) mg/dL LDL Cholesterol Direct (0-129) mg/dL HDL Cholesterol (30-70) mg/dL Urine Color (YELLOW) Urine Clarity (Clear) Urine pH (5.0-8.0) Ur Specific [place] (1.003-1.030) Urine Protein (NEGATIVE) mg/dL Urine Glucose (UA) (Normal) mg/dL Urine Ketones (NEGATIVE) mg/dL Urine Blood (NEGATIVE) Urine Nitrate (NEGATIVE) Urine Bilirubin (NEGATIVE) Urine Urobilinogen (0.2-1.0) mg/dL Ur Leukocyte Esterase (Negative) Dandre/uL Urine WBC (Auto) (0-5) /hpf Urine RBC (Auto) (0-3) /hpf Urine Opiates Screen (NEGATIVE) Urine Methadone Screen (NEGATIVE) Ur Barbiturates Screen (NEGATIVE) Ur Phencyclidine Scrn (NEGATIVE) Ur Amphetamines Screen (NEGATIVE) U Benzodiazepines Scrn (NEGATIVE) U Oth Cocaine Metabols (NEGATIVE) U Cannabinoids Screen (NEGATIVE) Blood Type Antibody Screen 06/06/18 06/06/18 06/06/18 Range/Units 23:53 23:53 23:53 WBC 6.3 (4.8-10.8) K/uL RBC 4.77 (3.80-5.20) Mil/uL Hgb 14.5 (11.0-16.0) g/dL Hct 41.7 (34.0-47.0) % MCV 87.4 (81.0-99.0) fL MCH 30.4 (27.0-31.0) pg MCHC 34.8 (33.0-37.0) g/dL RDW 12.4 (11.5-14.5) % Plt Count 223 (130-400) K/uL MPV 8.7 (7.2-11.7) fL Neut % (Auto) 56.7 (50.0-75.0) % Lymph % (Auto) 29.8 (20.0-40.0) % [place] % (Auto) 11.6 H (0.0-10.0) % Eos % (Auto) 0.6 (0.0-4.0) % Baso % (Auto) 1.3 (0.0-2.0) % Neut # (Auto) 3.6 (1.8-7.0) K/uL Lymph # (Auto) 1.9 (1.0-4.3) K/uL [place] # (Auto) 0.7 (0.0-0.8) K/uL Eos # (Auto) 0.0 (0.0-0.7) K/uL Baso # (Auto) 0.1 (0.0-0.2) K/uL ESR (0-20) mm/hr PT 11.9 (9.7-12.2) SECONDS INR 1.1 APTT 33 (21-34) SECONDS Sodium 141 (132-148) mmol/L Potassium 3.7 (3.6-5.2) mmol/L Chloride 101 (98-107) mmol/L Carbon Dioxide 27 (22-30) mmol/L Anion Gap 17 (10-20) BUN 10 (7-17) mg/dL Creatinine 0.6 L (0.7-1.2) mg/dL Est GFR ( Amer) > 60 Est GFR (Non-Af Amer) > 60 POC Glucose (mg/dL) (65-110) mg/dL Random Glucose 120 H (65-105) mg/dL Hemoglobin A1c (4.2-6.5) % Calcium 9.7 (8.6-10.4) mg/dl Total Bilirubin 0.5 (0.2-1.3) mg/dL AST 16 (14-36) U/L ALT 19 (9-52) U/L Alkaline Phosphatase 72 (38-126) U/L Total Creatine Kinase 60 (30-135) U/L CK-MB (Mass) 0.55 (0.0-3.38) ng/mL Troponin I < 0.0120 (0.00-0.120) ng/mL C-Reactive Protein (0.0-9.9) mg/L NT-Pro-B Natriuret Pep 384 (0-450) pg/mL Total Protein 7.7 (6.3-8.3) g/dL Albumin 4.8 (3.5-5.0) g/dL Globulin 3.0 (2.2-3.9) gm/dL Albumin/Globulin Ratio 1.6 (1.0-2.1) Triglycerides 126 D (0-149) mg/dL Cholesterol 223 H (0-199) mg/dL LDL Cholesterol Direct 137 H (0-129) mg/dL HDL Cholesterol 60 (30-70) mg/dL Urine Color (YELLOW) Urine Clarity (Clear) Urine pH (5.0-8.0) Ur Specific [place] (1.003-1.030) Urine Protein (NEGATIVE) mg/dL Urine Glucose (UA) (Normal) mg/dL Urine Ketones (NEGATIVE) mg/dL Urine Blood (NEGATIVE) Urine Nitrate (NEGATIVE) Urine Bilirubin (NEGATIVE) Urine Urobilinogen (0.2-1.0) mg/dL Ur Leukocyte Esterase (Negative) Dandre/uL Urine WBC (Auto) (0-5) /hpf Urine RBC (Auto) (0-3) /hpf Urine Opiates Screen (NEGATIVE) Urine Methadone Screen (NEGATIVE) Ur Barbiturates Screen (NEGATIVE) Ur Phencyclidine Scrn (NEGATIVE) Ur Amphetamines Screen (NEGATIVE) U Benzodiazepines Scrn (NEGATIVE) U Oth Cocaine Metabols (NEGATIVE) U Cannabinoids Screen (NEGATIVE) Blood Type Antibody Screen 06/06/18 06/06/18 Range/Units 23:52 23:43 WBC (4.8-10.8) K/uL RBC (3.80-5.20) Mil/uL Hgb (11.0-16.0) g/dL Hct (34.0-47.0) % MCV (81.0-99.0) fL MCH (27.0-31.0) pg MCHC (33.0-37.0) g/dL RDW (11.5-14.5) % Plt Count (130-400) K/uL MPV (7.2-11.7) fL Neut % (Auto) (50.0-75.0) % Lymph % (Auto) (20.0-40.0) % [place] % (Auto) (0.0-10.0) % Eos % (Auto) (0.0-4.0) % Baso % (Auto) (0.0-2.0) % Neut # (Auto) (1.8-7.0) K/uL Lymph # (Auto) (1.0-4.3) K/uL [place] # (Auto) (0.0-0.8) K/uL Eos # (Auto) (0.0-0.7) K/uL Baso # (Auto) (0.0-0.2) K/uL ESR (0-20) mm/hr PT (9.7-12.2) SECONDS INR APTT (21-34) SECONDS Sodium (132-148) mmol/L Potassium (3.6-5.2) mmol/L Chloride (98-107) mmol/L Carbon Dioxide (22-30) mmol/L Anion Gap (10-20) BUN (7-17) mg/dL Creatinine (0.7-1.2) mg/dL Est GFR ( Amer) Est GFR (Non-Af Amer) POC Glucose (mg/dL) 92 (65-110) mg/dL Random Glucose (65-105) mg/dL Hemoglobin A1c (4.2-6.5) % Calcium (8.6-10.4) mg/dl Total Bilirubin (0.2-1.3) mg/dL AST (14-36) U/L ALT (9-52) U/L Alkaline Phosphatase (38-126) U/L Total Creatine Kinase (30-135) U/L CK-MB (Mass) (0.0-3.38) ng/mL Troponin I (0.00-0.120) ng/mL C-Reactive Protein (0.0-9.9) mg/L NT-Pro-B Natriuret Pep (0-450) pg/mL Total Protein (6.3-8.3) g/dL Albumin (3.5-5.0) g/dL Globulin (2.2-3.9) gm/dL Albumin/Globulin Ratio (1.0-2.1) Triglycerides (0-149) mg/dL Cholesterol (0-199) mg/dL LDL Cholesterol Direct (0-129) mg/dL HDL Cholesterol (30-70) mg/dL Urine Color (YELLOW) Urine Clarity (Clear) Urine pH (5.0-8.0) Ur Specific [place] (1.003-1.030) Urine Protein (NEGATIVE) mg/dL Urine Glucose (UA) (Normal) mg/dL Urine Ketones (NEGATIVE) mg/dL Urine Blood (NEGATIVE) Urine Nitrate (NEGATIVE) Urine Bilirubin (NEGATIVE) Urine Urobilinogen (0.2-1.0) mg/dL Ur Leukocyte Esterase (Negative) Dandre/uL Urine WBC (Auto) (0-5) /hpf Urine RBC (Auto) (0-3) /hpf Urine Opiates Screen (NEGATIVE) Urine Methadone Screen (NEGATIVE) Ur Barbiturates Screen (NEGATIVE) Ur Phencyclidine Scrn (NEGATIVE) Ur Amphetamines Screen (NEGATIVE) U Benzodiazepines Scrn (NEGATIVE) U Oth Cocaine Metabols (NEGATIVE) U Cannabinoids Screen (NEGATIVE) Blood Type A POSITIVE Antibody Screen Negative Laboratory Results - last 24 hr 06/06/18 06/06/18 06/06/18 23:43 23:52 23:53 WBC 6.3 RBC 4.77 Hgb 14.5 Hct 41.7 MCV 87.4 MCH 30.4 MCHC 34.8 RDW 12.4 Plt Count 223 MPV 8.7 Neut % (Auto) 56.7 Lymph % (Auto) 29.8 [place] % (Auto) 11.6 H Eos % (Auto) 0.6 Baso % (Auto) 1.3 Neut # (Auto) 3.6 Lymph # (Auto) 1.9 [place] # (Auto) 0.7 Eos # (Auto) 0.0 Baso # (Auto) 0.1 ESR PT INR APTT Sodium Potassium Chloride Carbon Dioxide Anion Gap BUN Creatinine Est GFR ( Amer) Est GFR (Non-Af Amer) POC Glucose (mg/dL) 92 Random Glucose Hemoglobin A1c Calcium Total Bilirubin AST ALT Alkaline Phosphatase Total Creatine Kinase CK-MB (Mass) Troponin I C-Reactive Protein NT-Pro-B Natriuret Pep Total Protein Albumin Globulin Albumin/Globulin Ratio Triglycerides Cholesterol LDL Cholesterol Direct HDL Cholesterol Urine Color Urine Clarity Urine pH Ur Specific [place] Urine Protein Urine Glucose (UA) Urine Ketones Urine Blood Urine Nitrate Urine Bilirubin Urine Urobilinogen Ur Leukocyte Esterase Urine WBC (Auto) Urine RBC (Auto) Urine Opiates Screen Urine Methadone Screen Ur Barbiturates Screen Ur Phencyclidine Scrn Ur Amphetamines Screen U Benzodiazepines Scrn U Oth Cocaine Metabols U Cannabinoids Screen Blood Type A POSITIVE Antibody Screen Negative 06/06/18 06/06/18 06/06/18 23:53 23:53 23:53 WBC RBC Hgb Hct MCV MCH MCHC RDW Plt Count MPV Neut % (Auto) Lymph % (Auto) [place] % (Auto) Eos % (Auto) Baso % (Auto) Neut # (Auto) Lymph # (Auto) [place] # (Auto) Eos # (Auto) Baso # (Auto) ESR PT 11.9 INR 1.1 APTT 33 Sodium 141 Potassium 3.7 Chloride 101 Carbon Dioxide 27 Anion Gap 17 BUN 10 Creatinine 0.6 L Est GFR ( Amer) > 60 Est GFR (Non-Af Amer) > 60 POC Glucose (mg/dL) Random Glucose 120 H Hemoglobin A1c 5.1 Calcium 9.7 Total Bilirubin 0.5 AST 16 ALT 19 Alkaline Phosphatase 72 Total Creatine Kinase 60 CK-MB (Mass) 0.55 Troponin I < 0.0120 C-Reactive Protein NT-Pro-B Natriuret Pep 384 Total Protein 7.7 Albumin 4.8 Globulin 3.0 Albumin/Globulin Ratio 1.6 Triglycerides 126 D Cholesterol 223 H LDL Cholesterol Direct 137 H HDL Cholesterol 60 Urine Color Urine Clarity Urine pH Ur Specific [place] Urine Protein Urine Glucose (UA) Urine Ketones Urine Blood Urine Nitrate Urine Bilirubin Urine Urobilinogen Ur Leukocyte Esterase Urine WBC (Auto) Urine RBC (Auto) Urine Opiates Screen Urine Methadone Screen Ur Barbiturates Screen Ur Phencyclidine Scrn Ur Amphetamines Screen U Benzodiazepines Scrn U Oth Cocaine Metabols U Cannabinoids Screen Blood Type Antibody Screen 06/07/18 06/07/18 06/07/18 03:34 04:32 04:32 WBC RBC Hgb Hct MCV MCH MCHC RDW Plt Count MPV Neut % (Auto) Lymph % (Auto) [place] % (Auto) Eos % (Auto) Baso % (Auto) Neut # (Auto) Lymph # (Auto) [place] # (Auto) Eos # (Auto) Baso # (Auto) ESR 12 PT INR APTT Sodium Potassium Chloride Carbon Dioxide Anion Gap BUN Creatinine Est GFR ( Amer) Est GFR (Non-Af Amer) POC Glucose (mg/dL) 137 H Random Glucose Hemoglobin A1c Calcium Total Bilirubin AST ALT Alkaline Phosphatase Total Creatine Kinase CK-MB (Mass) Troponin I C-Reactive Protein < 5.00 NT-Pro-B Natriuret Pep Total Protein Albumin Globulin Albumin/Globulin Ratio Triglycerides Cholesterol LDL Cholesterol Direct HDL Cholesterol Urine Color Urine Clarity Urine pH Ur Specific [place] Urine Protein Urine Glucose (UA) Urine Ketones Urine Blood Urine Nitrate Urine Bilirubin Urine Urobilinogen Ur Leukocyte Esterase Urine WBC (Auto) Urine RBC (Auto) Urine Opiates Screen Urine Methadone Screen Ur Barbiturates Screen Ur Phencyclidine Scrn Ur Amphetamines Screen U Benzodiazepines Scrn U Oth Cocaine Metabols U Cannabinoids Screen Blood Type Antibody Screen 06/07/18 06/07/18 04:35 06:51 WBC RBC Hgb Hct MCV MCH MCHC RDW Plt Count MPV Neut % (Auto) Lymph % (Auto) [place] % (Auto) Eos % (Auto) Baso % (Auto) Neut # (Auto) Lymph # (Auto) [place] # (Auto) Eos # (Auto) Baso # (Auto) ESR PT INR APTT Sodium Potassium Chloride Carbon Dioxide Anion Gap BUN Creatinine Est GFR ( Amer) Est GFR (Non-Af Amer) POC Glucose (mg/dL) Random Glucose Hemoglobin A1c Calcium Total Bilirubin AST ALT Alkaline Phosphatase Total Creatine Kinase CK-MB (Mass) Troponin I C-Reactive Protein NT-Pro-B Natriuret Pep Total Protein Albumin Globulin Albumin/Globulin Ratio Triglycerides Cholesterol LDL Cholesterol Direct HDL Cholesterol Urine Color Straw Urine Clarity Clear Urine pH 7.0 Ur Specific [place] 1.039 H Urine Protein Negative Urine Glucose (UA) Normal Urine Ketones Trace Urine Blood Negative Urine Nitrate Negative Urine Bilirubin Negative Urine Urobilinogen Normal Ur Leukocyte Esterase Neg Urine WBC (Auto) < 1 Urine RBC (Auto) 1 Urine Opiates Screen Positive H Urine Methadone Screen Negative Ur Barbiturates Screen Negative Ur Phencyclidine Scrn Negative Ur Amphetamines Screen Negative U Benzodiazepines Scrn Negative U Oth Cocaine Metabols Negative U Cannabinoids Screen Negative Blood Type Antibody Screen EKG/Cardiology Studies: Cardiology / EKG Studies 06/06/18 23:45 ELECTROCARDIOGRAM Stat Comment: Mode Of Transportation: BED Reason For Exam: code stroke bed 5 Critical Care Progress Note - Nutrition Nutrition: Nutrition Category Date Time Status Heart Healthy Diet [DIET] Diets 06/07/18 Lunch Active Attending/Attestation - Attestation I have personally seen and examined this patient.: Yes I have fully participated in the care of the patient.: Yes I have reviewed all pertinent clinical information: Yes Notes (Text): 06/07/18 14:29 I have seen and examined the patient. Medical records, lab studies, and imaging were reviewed by me and a management plan was formulated on multidisciplinary rounds with resident Dr. Cary. I agree with their documented assessment and plan. Patient has an intraparenchymal bleed. obtaining MRV to r/o sinus thrombosis. Also possible underlying mass, but will need followup MRI once blood resorbs in about two weeks. Giving dilaudid for headache pain control. Blood pressure control with cardene gtt, but uncertain if chronic or reactive to pain and stress currently. No prior history of HTN, only family hx of mother having HTN. Critical Care Time 35 minutes. Multi-disciplinary rounds were performed with house staff, nursing, speech therapy, respiratory therapy, pharmacy and nutrition with integrated input from the primary team/attending and other consulting services. The documented time is cumulative and includes review of patient data/exams/labs/chart review and examination of the patient on rounds and throughout the day; time is exclusive of any procedures or teaching time. <Elizabeth Cary L - Last Filed: 06/07/18 16:02> CCU Subjective - Physician Review Subjective (Free Text): Critical Care Progress Note Patient examined at bedside. States that she feels nauseous and has a headache. Patient unable to void and so wynn catheter was inserted overnight. Denies change in severity of her right upper and lower extremity weakness. Critical Care Time Spent (in minutes): 35 CCU Objective - Vital Signs / Intake & Output Vital Signs (Last 4 hours): Vital Signs Temp Pulse Resp BP Pulse Ox 06/07/18 08:00 97.7 F 88 7 L 99 06/07/18 07:50 79 8 L 99 06/07/18 07:40 87 6 L 99 06/07/18 07:39 87 7 L 137/92 H 99 06/07/18 07:30 87 8 L 99 06/07/18 07:20 96 H 10 L 99 Intake and Output (Last 8hrs): Intake & Output 06/06/18 06/07/18 06/07/18 22:59 06:59 14:59 Intake Total 670 200 Output Total 520 130 Balance 150 70 Weight 157 lb Intake: IV 70 Intake, IV Amount 600 200 Left Antecubital 100 0 Left Hand 500 200 Output: Urine 520 130 Urethral (Wynn) 520 130 Stool 0 0 Other: Voiding Method Indwelling Catheter - Physical Exam Head: Positive for: Atraumatic, Normocephalic Pupils: Positive for: PERRL Extroacular Muscles: Positive for: EOMI Conjunctiva: Positive for: Normal Mouth: Positive for: Dry Neck: Positive for: Normal Range of Motion. Negative for: JVD Respiratory/Chest: Positive for: Clear to Auscultation, Good Air Exchange. Negative for: Respiratory Distress, Accessory Muscle Use, Wheezes, Rales, Rhonchi, Tachypneic Cardiovascular: Positive for: Regular Rate and Rhythm, Normal S1, S2 Abdomen: Positive for: Normal Bowel Sounds. Negative for: Tenderness, Distention Upper Extremity: Negative for: Cyanosis, Edema, Normal ROM (RUE +1/4 muscle strength), Neurovascularly Intact (paresthesias in RUE) Lower Extremity: Positive for: NORMAL PULSES. Negative for: Normal ROM (RLE +1/4 muscle strength), Swelling, Neurovascularly Intact (loss of sensation in RLE) Neurological: Positive for: GCS=15, CN II-XII Intact, Speech Normal. Negative for: Motor Func Grossly Intact, Normal Sensory Function, Norm Deep Tendon Reflexes (R patella brisk reflex) Skin: Positive for: Warm, Dry, Normal Color. Negative for: Rashes Psychiatric: Positive for: Alert, Oriented x 3, Normal Insight, Normal Concentration, Anxious - Medications Active Medications: Active Medications Generic Name Dose Route Start Last Admin Trade Name Freq PRN Reason Stop Dose Admin Famotidine 20 mg 06/07/18 10:00 06/07/18 09:25 Pepcid IVP 20 mg DAILY DEIRDRE Administration Nicardipine HCl 25 mg/ Sodium 250 mls @ 50 mls/hr 06/07/18 00:45 06/07/18 03:30 Chloride IV 0 mg/hr .Q5H DEIRDRE 0 mls/hr Titration Protocol 5 MG/HR Sodium Chloride 1,000 mls @ 100 mls/hr 06/07/18 02:15 06/07/18 02:25 Sodium Chloride 0.9% IV 100 mls/hr .Q10H DEIRDRE Administration - Patient Studies Lab Studies: Lab Studies 06/07/18 06/07/18 06/07/18 Range/Units 06:51 04:35 04:32 WBC (4.8-10.8) K/uL RBC (3.80-5.20) Mil/uL Hgb (11.0-16.0) g/dL Hct (34.0-47.0) % MCV (81.0-99.0) fL MCH (27.0-31.0) pg MCHC (33.0-37.0) g/dL RDW (11.5-14.5) % Plt Count (130-400) K/uL MPV (7.2-11.7) fL Neut % (Auto) (50.0-75.0) % Lymph % (Auto) (20.0-40.0) % [place] % (Auto) (0.0-10.0) % Eos % (Auto) (0.0-4.0) % Baso % (Auto) (0.0-2.0) % Neut # (Auto) (1.8-7.0) K/uL Lymph # (Auto) (1.0-4.3) K/uL [place] # (Auto) (0.0-0.8) K/uL Eos # (Auto) (0.0-0.7) K/uL Baso # (Auto) (0.0-0.2) K/uL ESR 12 (0-20) mm/hr PT (9.7-12.2) SECONDS INR APTT (21-34) SECONDS Sodium (132-148) mmol/L Potassium (3.6-5.2) mmol/L Chloride (98-107) mmol/L Carbon Dioxide (22-30) mmol/L Anion Gap (10-20) BUN (7-17) mg/dL Creatinine (0.7-1.2) mg/dL Est GFR ( Amer) Est GFR (Non-Af Amer) POC Glucose (mg/dL) (65-110) mg/dL Random Glucose (65-105) mg/dL Hemoglobin A1c (4.2-6.5) % Calcium (8.6-10.4) mg/dl Total Bilirubin (0.2-1.3) mg/dL AST (14-36) U/L ALT (9-52) U/L Alkaline Phosphatase (38-126) U/L Total Creatine Kinase (30-135) U/L CK-MB (Mass) (0.0-3.38) ng/mL Troponin I (0.00-0.120) ng/mL C-Reactive Protein (0.0-9.9) mg/L NT-Pro-B Natriuret Pep (0-450) pg/mL Total Protein (6.3-8.3) g/dL Albumin (3.5-5.0) g/dL Globulin (2.2-3.9) gm/dL Albumin/Globulin Ratio (1.0-2.1) Triglycerides (0-149) mg/dL Cholesterol (0-199) mg/dL LDL Cholesterol Direct (0-129) mg/dL HDL Cholesterol (30-70) mg/dL Urine Color Straw (YELLOW) Urine Clarity Clear (Clear) Urine pH 7.0 (5.0-8.0) Ur Specific [place] 1.039 H (1.003-1.030) Urine Protein Negative (NEGATIVE) mg/dL Urine Glucose (UA) Normal (Normal) mg/dL Urine Ketones Trace (NEGATIVE) mg/dL Urine Blood Negative (NEGATIVE) Urine Nitrate Negative (NEGATIVE) Urine Bilirubin Negative (NEGATIVE) Urine Urobilinogen Normal (0.2-1.0) mg/dL Ur Leukocyte Esterase Neg (Negative) Dandre/uL Urine WBC (Auto) < 1 (0-5) /hpf Urine RBC (Auto) 1 (0-3) /hpf Urine Opiates Screen Positive H (NEGATIVE) Urine Methadone Screen Negative (NEGATIVE) Ur Barbiturates Screen Negative (NEGATIVE) Ur Phencyclidine Scrn Negative (NEGATIVE) Ur Amphetamines Screen Negative (NEGATIVE) U Benzodiazepines Scrn Negative (NEGATIVE) U Oth Cocaine Metabols Negative (NEGATIVE) U Cannabinoids Screen Negative (NEGATIVE) Blood Type Antibody Screen 06/07/18 06/07/18 06/06/18 Range/Units 04:32 03:34 23:53 WBC (4.8-10.8) K/uL RBC (3.80-5.20) Mil/uL Hgb (11.0-16.0) g/dL Hct (34.0-47.0) % MCV (81.0-99.0) fL MCH (27.0-31.0) pg MCHC (33.0-37.0) g/dL RDW (11.5-14.5) % Plt Count (130-400) K/uL MPV (7.2-11.7) fL Neut % (Auto) (50.0-75.0) % Lymph % (Auto) (20.0-40.0) % [place] % (Auto) (0.0-10.0) % Eos % (Auto) (0.0-4.0) % Baso % (Auto) (0.0-2.0) % Neut # (Auto) (1.8-7.0) K/uL Lymph # (Auto) (1.0-4.3) K/uL [place] # (Auto) (0.0-0.8) K/uL Eos # (Auto) (0.0-0.7) K/uL Baso # (Auto) (0.0-0.2) K/uL ESR (0-20) mm/hr PT (9.7-12.2) SECONDS INR APTT (21-34) SECONDS Sodium (132-148) mmol/L Potassium (3.6-5.2) mmol/L Chloride (98-107) mmol/L Carbon Dioxide (22-30) mmol/L Anion Gap (10-20) BUN (7-17) mg/dL Creatinine (0.7-1.2) mg/dL Est GFR ( Amer) Est GFR (Non-Af Amer) POC Glucose (mg/dL) 137 H (65-110) mg/dL Random Glucose (65-105) mg/dL Hemoglobin A1c 5.1 (4.2-6.5) % Calcium (8.6-10.4) mg/dl Total Bilirubin (0.2-1.3) mg/dL AST (14-36) U/L ALT (9-52) U/L Alkaline Phosphatase (38-126) U/L Total Creatine Kinase (30-135) U/L CK-MB (Mass) (0.0-3.38) ng/mL Troponin I (0.00-0.120) ng/mL C-Reactive Protein < 5.00 (0.0-9.9) mg/L NT-Pro-B Natriuret Pep (0-450) pg/mL Total Protein (6.3-8.3) g/dL Albumin (3.5-5.0) g/dL Globulin (2.2-3.9) gm/dL Albumin/Globulin Ratio (1.0-2.1) Triglycerides (0-149) mg/dL Cholesterol (0-199) mg/dL LDL Cholesterol Direct (0-129) mg/dL HDL Cholesterol (30-70) mg/dL Urine Color (YELLOW) Urine Clarity (Clear) Urine pH (5.0-8.0) Ur Specific [place] (1.003-1.030) Urine Protein (NEGATIVE) mg/dL Urine Glucose (UA) (Normal) mg/dL Urine Ketones (NEGATIVE) mg/dL Urine Blood (NEGATIVE) Urine Nitrate (NEGATIVE) Urine Bilirubin (NEGATIVE) Urine Urobilinogen (0.2-1.0) mg/dL Ur Leukocyte Esterase (Negative) Dandre/uL Urine WBC (Auto) (0-5) /hpf Urine RBC (Auto) (0-3) /hpf Urine Opiates Screen (NEGATIVE) Urine Methadone Screen (NEGATIVE) Ur Barbiturates Screen (NEGATIVE) Ur Phencyclidine Scrn (NEGATIVE) Ur Amphetamines Screen (NEGATIVE) U Benzodiazepines Scrn (NEGATIVE) U Oth Cocaine Metabols (NEGATIVE) U Cannabinoids Screen (NEGATIVE) Blood Type Antibody Screen 06/06/18 06/06/18 06/06/18 Range/Units 23:53 23:53 23:53 WBC 6.3 (4.8-10.8) K/uL RBC 4.77 (3.80-5.20) Mil/uL Hgb 14.5 (11.0-16.0) g/dL Hct 41.7 (34.0-47.0) % MCV 87.4 (81.0-99.0) fL MCH 30.4 (27.0-31.0) pg MCHC 34.8 (33.0-37.0) g/dL RDW 12.4 (11.5-14.5) % Plt Count 223 (130-400) K/uL MPV 8.7 (7.2-11.7) fL Neut % (Auto) 56.7 (50.0-75.0) % Lymph % (Auto) 29.8 (20.0-40.0) % [place] % (Auto) 11.6 H (0.0-10.0) % Eos % (Auto) 0.6 (0.0-4.0) % Baso % (Auto) 1.3 (0.0-2.0) % Neut # (Auto) 3.6 (1.8-7.0) K/uL Lymph # (Auto) 1.9 (1.0-4.3) K/uL [place] # (Auto) 0.7 (0.0-0.8) K/uL Eos # (Auto) 0.0 (0.0-0.7) K/uL Baso # (Auto) 0.1 (0.0-0.2) K/uL ESR (0-20) mm/hr PT 11.9 (9.7-12.2) SECONDS INR 1.1 APTT 33 (21-34) SECONDS Sodium 141 (132-148) mmol/L Potassium 3.7 (3.6-5.2) mmol/L Chloride 101 (98-107) mmol/L Carbon Dioxide 27 (22-30) mmol/L Anion Gap 17 (10-20) BUN 10 (7-17) mg/dL Creatinine 0.6 L (0.7-1.2) mg/dL Est GFR ( Amer) > 60 Est GFR (Non-Af Amer) > 60 POC Glucose (mg/dL) (65-110) mg/dL Random Glucose 120 H (65-105) mg/dL Hemoglobin A1c (4.2-6.5) % Calcium 9.7 (8.6-10.4) mg/dl Total Bilirubin 0.5 (0.2-1.3) mg/dL AST 16 (14-36) U/L ALT 19 (9-52) U/L Alkaline Phosphatase 72 (38-126) U/L Total Creatine Kinase 60 (30-135) U/L CK-MB (Mass) 0.55 (0.0-3.38) ng/mL Troponin I < 0.0120 (0.00-0.120) ng/mL C-Reactive Protein (0.0-9.9) mg/L NT-Pro-B Natriuret Pep 384 (0-450) pg/mL Total Protein 7.7 (6.3-8.3) g/dL Albumin 4.8 (3.5-5.0) g/dL Globulin 3.0 (2.2-3.9) gm/dL Albumin/Globulin Ratio 1.6 (1.0-2.1) Triglycerides 126 D (0-149) mg/dL Cholesterol 223 H (0-199) mg/dL LDL Cholesterol Direct 137 H (0-129) mg/dL HDL Cholesterol 60 (30-70) mg/dL Urine Color (YELLOW) Urine Clarity (Clear) Urine pH (5.0-8.0) Ur Specific [place] (1.003-1.030) Urine Protein (NEGATIVE) mg/dL Urine Glucose (UA) (Normal) mg/dL Urine Ketones (NEGATIVE) mg/dL Urine Blood (NEGATIVE) Urine Nitrate (NEGATIVE) Urine Bilirubin (NEGATIVE) Urine Urobilinogen (0.2-1.0) mg/dL Ur Leukocyte Esterase (Negative) Dandre/uL Urine WBC (Auto) (0-5) /hpf Urine RBC (Auto) (0-3) /hpf Urine Opiates Screen (NEGATIVE) Urine Methadone Screen (NEGATIVE) Ur Barbiturates Screen (NEGATIVE) Ur Phencyclidine Scrn (NEGATIVE) Ur Amphetamines Screen (NEGATIVE) U Benzodiazepines Scrn (NEGATIVE) U Oth Cocaine Metabols (NEGATIVE) U Cannabinoids Screen (NEGATIVE) Blood Type Antibody Screen 06/06/18 06/06/18 Range/Units 23:52 23:43 WBC (4.8-10.8) K/uL RBC (3.80-5.20) Mil/uL Hgb (11.0-16.0) g/dL Hct (34.0-47.0) % MCV (81.0-99.0) fL MCH (27.0-31.0) pg MCHC (33.0-37.0) g/dL RDW (11.5-14.5) % Plt Count (130-400) K/uL MPV (7.2-11.7) fL Neut % (Auto) (50.0-75.0) % Lymph % (Auto) (20.0-40.0) % [place] % (Auto) (0.0-10.0) % Eos % (Auto) (0.0-4.0) % Baso % (Auto) (0.0-2.0) % Neut # (Auto) (1.8-7.0) K/uL Lymph # (Auto) (1.0-4.3) K/uL [place] # (Auto) (0.0-0.8) K/uL Eos # (Auto) (0.0-0.7) K/uL Baso # (Auto) (0.0-0.2) K/uL ESR (0-20) mm/hr PT (9.7-12.2) SECONDS INR APTT (21-34) SECONDS Sodium (132-148) mmol/L Potassium (3.6-5.2) mmol/L Chloride (98-107) mmol/L Carbon Dioxide (22-30) mmol/L Anion Gap (10-20) BUN (7-17) mg/dL Creatinine (0.7-1.2) mg/dL Est GFR ( Amer) Est GFR (Non-Af Amer) POC Glucose (mg/dL) 92 (65-110) mg/dL Random Glucose (65-105) mg/dL Hemoglobin A1c (4.2-6.5) % Calcium (8.6-10.4) mg/dl Total Bilirubin (0.2-1.3) mg/dL AST (14-36) U/L ALT (9-52) U/L Alkaline Phosphatase (38-126) U/L Total Creatine Kinase (30-135) U/L CK-MB (Mass) (0.0-3.38) ng/mL Troponin I (0.00-0.120) ng/mL C-Reactive Protein (0.0-9.9) mg/L NT-Pro-B Natriuret Pep (0-450) pg/mL Total Protein (6.3-8.3) g/dL Albumin (3.5-5.0) g/dL Globulin (2.2-3.9) gm/dL Albumin/Globulin Ratio (1.0-2.1) Triglycerides (0-149) mg/dL Cholesterol (0-199) mg/dL LDL Cholesterol Direct (0-129) mg/dL HDL Cholesterol (30-70) mg/dL Urine Color (YELLOW) Urine Clarity (Clear) Urine pH (5.0-8.0) Ur Specific [place] (1.003-1.030) Urine Protein (NEGATIVE) mg/dL Urine Glucose (UA) (Normal) mg/dL Urine Ketones (NEGATIVE) mg/dL Urine Blood (NEGATIVE) Urine Nitrate (NEGATIVE) Urine Bilirubin (NEGATIVE) Urine Urobilinogen (0.2-1.0) mg/dL Ur Leukocyte Esterase (Negative) Dandre/uL Urine WBC (Auto) (0-5) /hpf Urine RBC (Auto) (0-3) /hpf Urine Opiates Screen (NEGATIVE) Urine Methadone Screen (NEGATIVE) Ur Barbiturates Screen (NEGATIVE) Ur Phencyclidine Scrn (NEGATIVE) Ur Amphetamines Screen (NEGATIVE) U Benzodiazepines Scrn (NEGATIVE) U Oth Cocaine Metabols (NEGATIVE) U Cannabinoids Screen (NEGATIVE) Blood Type A POSITIVE Antibody Screen Negative Laboratory Results - last 24 hr 06/06/18 06/06/18 06/06/18 23:43 23:52 23:53 WBC 6.3 RBC 4.77 Hgb 14.5 Hct 41.7 MCV 87.4 MCH 30.4 MCHC 34.8 RDW 12.4 Plt Count 223 MPV 8.7 Neut % (Auto) 56.7 Lymph % (Auto) 29.8 [place] % (Auto) 11.6 H Eos % (Auto) 0.6 Baso % (Auto) 1.3 Neut # (Auto) 3.6 Lymph # (Auto) 1.9 [place] # (Auto) 0.7 Eos # (Auto) 0.0 Baso # (Auto) 0.1 ESR PT INR APTT Sodium Potassium Chloride Carbon Dioxide Anion Gap BUN Creatinine Est GFR ( Amer) Est GFR (Non-Af Amer) POC Glucose (mg/dL) 92 Random Glucose Hemoglobin A1c Calcium Total Bilirubin AST ALT Alkaline Phosphatase Total Creatine Kinase CK-MB (Mass) Troponin I C-Reactive Protein NT-Pro-B Natriuret Pep Total Protein Albumin Globulin Albumin/Globulin Ratio Triglycerides Cholesterol LDL Cholesterol Direct HDL Cholesterol Urine Color Urine Clarity Urine pH Ur Specific [place] Urine Protein Urine Glucose (UA) Urine Ketones Urine Blood Urine Nitrate Urine Bilirubin Urine Urobilinogen Ur Leukocyte Esterase Urine WBC (Auto) Urine RBC (Auto) Urine Opiates Screen Urine Methadone Screen Ur Barbiturates Screen Ur Phencyclidine Scrn Ur Amphetamines Screen U Benzodiazepines Scrn U Oth Cocaine Metabols U Cannabinoids Screen Blood Type A POSITIVE Antibody Screen Negative 06/06/18 06/06/18 06/06/18 23:53 23:53 23:53 WBC RBC Hgb Hct MCV MCH MCHC RDW Plt Count MPV Neut % (Auto) Lymph % (Auto) [place] % (Auto) Eos % (Auto) Baso % (Auto) Neut # (Auto) Lymph # (Auto) [place] # (Auto) Eos # (Auto) Baso # (Auto) ESR PT 11.9 INR 1.1 APTT 33 Sodium 141 Potassium 3.7 Chloride 101 Carbon Dioxide 27 Anion Gap 17 BUN 10 Creatinine 0.6 L Est GFR ( Amer) > 60 Est GFR (Non-Af Amer) > 60 POC Glucose (mg/dL) Random Glucose 120 H Hemoglobin A1c 5.1 Calcium 9.7 Total Bilirubin 0.5 AST 16 ALT 19 Alkaline Phosphatase 72 Total Creatine Kinase 60 CK-MB (Mass) 0.55 Troponin I < 0.0120 C-Reactive Protein NT-Pro-B Natriuret Pep 384 Total Protein 7.7 Albumin 4.8 Globulin 3.0 Albumin/Globulin Ratio 1.6 Triglycerides 126 D Cholesterol 223 H LDL Cholesterol Direct 137 H HDL Cholesterol 60 Urine Color Urine Clarity Urine pH Ur Specific [place] Urine Protein Urine Glucose (UA) Urine Ketones Urine Blood Urine Nitrate Urine Bilirubin Urine Urobilinogen Ur Leukocyte Esterase Urine WBC (Auto) Urine RBC (Auto) Urine Opiates Screen Urine Methadone Screen Ur Barbiturates Screen Ur Phencyclidine Scrn Ur Amphetamines Screen U Benzodiazepines Scrn U Oth Cocaine Metabols U Cannabinoids Screen Blood Type Antibody Screen 06/07/18 06/07/18 06/07/18 03:34 04:32 04:32 WBC RBC Hgb Hct MCV MCH MCHC RDW Plt Count MPV Neut % (Auto) Lymph % (Auto) [place] % (Auto) Eos % (Auto) Baso % (Auto) Neut # (Auto) Lymph # (Auto) [place] # (Auto) Eos # (Auto) Baso # (Auto) ESR 12 PT INR APTT Sodium Potassium Chloride Carbon Dioxide Anion Gap BUN Creatinine Est GFR ( Amer) Est GFR (Non-Af Amer) POC Glucose (mg/dL) 137 H Random Glucose Hemoglobin A1c Calcium Total Bilirubin AST ALT Alkaline Phosphatase Total Creatine Kinase CK-MB (Mass) Troponin I C-Reactive Protein < 5.00 NT-Pro-B Natriuret Pep Total Protein Albumin Globulin Albumin/Globulin Ratio Triglycerides Cholesterol LDL Cholesterol Direct HDL Cholesterol Urine Color Urine Clarity Urine pH Ur Specific [place] Urine Protein Urine Glucose (UA) Urine Ketones Urine Blood Urine Nitrate Urine Bilirubin Urine Urobilinogen Ur Leukocyte Esterase Urine WBC (Auto) Urine RBC (Auto) Urine Opiates Screen Urine Methadone Screen Ur Barbiturates Screen Ur Phencyclidine Scrn Ur Amphetamines Screen U Benzodiazepines Scrn U Oth Cocaine Metabols U Cannabinoids Screen Blood Type Antibody Screen 06/07/18 06/07/18 04:35 06:51 WBC RBC Hgb Hct MCV MCH MCHC RDW Plt Count MPV Neut % (Auto) Lymph % (Auto) [place] % (Auto) Eos % (Auto) Baso % (Auto) Neut # (Auto) Lymph # (Auto) [place] # (Auto) Eos # (Auto) Baso # (Auto) ESR PT INR APTT Sodium Potassium Chloride Carbon Dioxide Anion Gap BUN Creatinine Est GFR ( Amer) Est GFR (Non-Af Amer) POC Glucose (mg/dL) Random Glucose Hemoglobin A1c Calcium Total Bilirubin AST ALT Alkaline Phosphatase Total Creatine Kinase CK-MB (Mass) Troponin I C-Reactive Protein NT-Pro-B Natriuret Pep Total Protein Albumin Globulin Albumin/Globulin Ratio Triglycerides Cholesterol LDL Cholesterol Direct HDL Cholesterol Urine Color Straw Urine Clarity Clear Urine pH 7.0 Ur Specific [place] 1.039 H Urine Protein Negative Urine Glucose (UA) Normal Urine Ketones Trace Urine Blood Negative Urine Nitrate Negative Urine Bilirubin Negative Urine Urobilinogen Normal Ur Leukocyte Esterase Neg Urine WBC (Auto) < 1 Urine RBC (Auto) 1 Urine Opiates Screen Positive H Urine Methadone Screen Negative Ur Barbiturates Screen Negative Ur Phencyclidine Scrn Negative Ur Amphetamines Screen Negative U Benzodiazepines Scrn Negative U Oth Cocaine Metabols Negative U Cannabinoids Screen Negative Blood Type Antibody Screen EKG/Cardiology Studies: Cardiology / EKG Studies 06/06/18 23:45 ELECTROCARDIOGRAM Stat Comment: Mode Of Transportation: BED Reason For Exam: code stroke bed 5 Review of Systems - Review of Systems All systems: reviewed and no additional remarkable complaints except (as stated in HPI) Critical Care Progress Note - Nutrition Nutrition: Nutrition Category Date Time Status NPO Diet [DIET] Diets 06/07/18 Breakfast Active Assessment/Plan - Assessment and Plan (Free Text) Assessment: 47 year old female presents with chief complaint right arm and right leg weakness and paresthesias, associated with headache and nausea found to have intracranial hemorrhage and admitted to ICU. Plan: Neuro: - Code stroke - AAOx3 - CTA head/neck shows no evidence endoluminal thrombus or occlusion in intracranial arteries, patent bilateral vertebral arteries, no significant stenosis in internal carotid arteries - Head MRA shows no evidence of large aneurysm nor vascular malformation, left perisylvian branches slightly assymetrical than right side, large left posterior parietal parenchymal hematoma - Neck MRA without significant findings - Brain MRI shows large left parietal hematoma with internal layering hemorrhagic components, surrounding vasogenic edema, subarachnoid hemorrhage in left frontoparietal sulci and right posterior parieto-occipital sulci, mild mass effect - Followup head MRV - Neurology Dr. Kendall consulted. Recs appreciated. - Neurosurgery Dr. Srinivasan consulted. Recs appreciated. - no surgical intervention indicated on admission - neurocheck Q1H - Dexamethasone 10 mg IV Q6H Pulm: - nasal cannula - maintain SpO2>92% CV: - maintain SBP<140 with nicardipine ggt GI: - swallow eval completed - advance diet as tolerated - Pepcid 20 mg IV daily - Zofran 4 mg IV PRN Renal: - wynn cath inserted as patient unable to void Endo: - maintain euglycemia - a1c 5.1 Heme: - monitor H/H - no acute issues ID: - afebrile, no leukocytosis PPX: Pepcid, SCDs, anticoagulation contraindicated due to intracranial bleed Case discussed and reviewed with Dr. Jacqueline Cary PGY-1 - Date & Time Date: 06/07/18 Time: 08:00
--- NOTE | 2018-06-07 11:40 | MRI ---
Date of service: 06/07/2018 PROCEDURE: Magnetic Resonance Angiography Brain HISTORY: Hematoma and subarachnoid hemorrhage COMPARISON: Comparison made with concurrent MRI of the brain as well as prior CT scan brain and CTA of the neck and brain 06/06/2018. TECHNIQUE: 3D time of flight MR angiography of the intracranial arteries was performed. Rotating maximum intensity projection images were generated. FINDINGS: INTERNAL CAROTID ARTERIES: Unremarkable. The skull base, petrous, cavernous and supraclinoid segments are bilaterally widely patient. ANTERIOR CEREBRAL ARTERIES: Unremarkable. A1 and A2 segments are widely paten though asymmetric with the left side larger in caliber/more dominant than the right. Smaller distal branches unremarkable, as visualized. MIDDLE CEREBRAL ARTERIES: Unremarkable. M1 and M2 segments are widely patent. Perisylvian branches grossly are patent although left perisylvian branches appear asymmetrically smaller in caliber than the right-side. This could be due to known parenchymal hematoma and surrounding edema with mild mass effect or possibly some basal spasm. POSTERIOR CIRCULATION: Basilar Artery: Unremarkable. Distal Vertebral Arteries: Unremarkable. Posterior Cerebral Arteries: origin of the right posterior cerebral artery with small right-sided P1 segment. The. Posterior Inferior Cerebellar Arteries: Unremarkable. ANEURYSM/ VASCULAR MALFORMATIONS: None. OTHER FINDINGS: Large left posterior parietal parenchymal hematoma IMPRESSION: No evidence of large aneurysm nor vascular malformation. The the distal on left perisylvian branches appears slightly asymmetrically smaller in caliber than the right side as detailed above. Large left posterior parietal parenchymal hematoma
--- NOTE | 2018-06-07 11:43 | MRI ---
Date of service: 06/07/2018 PROCEDURE: MRI BRAIN WITHOUT CONTRAST HISTORY: Evaluate intracranial hemorrhage COMPARISON: Comparison made with concurrent MRA of the brain as well as prior CT scans and CTA of the neck and brain 06/06/2018 TECHNIQUE: Multiplanar, multisequence MR images of the brain were obtained without intravenous contrast enhancement. FINDINGS: HEMORRHAGE: Redemonstrated is a large acute hematoma (which exhibits internal layering hemorrhagic components) located in the left parietal lobe which is associated with a small irregular thin rim of surrounding vasogenic edema.. The hematoma and its is attendant surrounding edema exert mild mass effect with overlying sulcal effacement and mild compression of the posterior aspect left lateral ventricle. Additionally, subarachnoid hemorrhage is also seen in the overlying sulci including the left sylvian fissure.. There also appears to be a small amount of subarachnoid hemorrhage in the right posterior frontal and right parieto-occipital sulci as well. The possibility of underlying vascular lesion not excluded. DWI: No evidence of an acute or early subacute infarction. BRAIN PARENCHYMA: There appears to be some very minimal slightly confluent prolonged T2 signal changes within the periventricular white matter likely representing some minor chronic sequela of small vessel disease the appear additionally, few tiny chronic appearing lacunar type infarcts seen scattered about the frontal white matter bilaterally. VENTRICLES: No obstructive hydrocephalus. CRANIUM: Unremarkable. ORBITS: Orbits and contents grossly unremarkable. PARANASAL SINUSES/MASTOIDS: Minimal mucosal thickening right maxillary antrum VASCULAR SYSTEM: Visualized major vascular flow voids at skull base patent. OTHER FINDINGS: None. IMPRESSION: Redemonstrated is a large left parietal hematoma with internal layering hemorrhagic components. There is small irregular rim of surrounding vasogenic edema. Subarachnoid hemorrhage is also present in the left frontoparietal sulci and right posterior parieto-occipital sulci as well. There is mild mass effect with overlying sulcal effacement and mild compression of the posterior aspect left lateral ventricle. Mild chronic white matter ischemic changes as described.
--- NOTE | 2018-06-07 12:06 | CP.PCM.CON ---
History of Present Illness - History of Present Illness History of Present Illness: PGY1 Neurology Consult Note for Dr. Kendall Patient is a 47-year-old Female with no significant PMH who was referred to us by Dr. Sawyer for sudden onset Left sided paralysis and numbness. Patient reports that on , 06/06 she began having sudden onset headache localized to the left side, and quantified as 9/10 in intensity, and associated with phonophobia and photophobia. Patient then noticed that her left upper and lower extremities were completely numb and paralyzed, which prompted her to call 911, and subsequently arrive to the ED, where [facility] was called. Of note, patient began having waves of headaches starting on Sunday, when she also felt she was having a "stomach bug" because she had several bouts of diarrhea. Patient went to her PMD for evaluation and was told to go to the ED if her headaches worsen. Patient then reports another intense headache on Sunday. Patient went to the ED for evaluation. CT was obtained and was negative for acute intracranial abnormalities, and was sent home after receiving IVF, Tylenol, and Reglan. Patient states that on Sunday, she noticed another bout of headache associated with nausea, 3 bouts of vomiting, in addition to photophobia and phonophobia. Patient returned to the ED and was discharged to home with diagnosis of Migraine. ROS otherwise unremarkable for vomiting, change in vision, slurred speech, chest pain, or SOB. During this admission patient underwent CT head without contrast which revealed interval development of 3.2 x 2.6 x 1.6cm acute intrapharenchymal hematoma and presumable central active bleeding in the left posterior frontal lobe with associated significant frontal and parietal lobe subarachnoid hemorrhage. Mild associated vasogenic edema and mass effect on the inter hemispheric fissure with 2mm midline shift from left to right without evidence for herniation or hydrocephalus. Review of Systems - Review of Systems All systems: reviewed and no additional remarkable complaints except - Constitutional Constitutional: As Per HPI - EENT Eyes: As Per HPI - Musculoskeletal Musculoskeletal: As Per HPI - Neurological Neurological: As Per HPI - Psychiatric Psychiatric: As Per HPI Past Patient History - Tetanus Immunizations Tetanus Immunization: Unknown - Past Medical History & Family History Past Medical History?: Yes - Past Social History Smoking Status: Never Smoked - CARDIAC Hx Cardiac Disorders: No - PULMONARY Hx Respiratory Disorders: No - NEUROLOGICAL Hx Neurological Disorder: No - MUSCULOSKELETAL/RHEUMATOLOGICAL Hx Falls: No - PSYCHIATRIC Hx Anxiety: Yes Hx Substance Use: No - SURGICAL HISTORY Hx Surgeries: No - ANESTHESIA Hx Anesthesia: No Meds Allergies/Adverse Reactions: Allergies Allergy/AdvReac Type Severity Reaction Status Date / Time tree nut Allergy Verified 06/06/18 23:41 - Medications Medications: Current Medications Famotidine (Pepcid) 20 mg IVP DAILY DEIRDRE Last Admin: 06/07/18 09:25 Dose: 20 mg Nicardipine HCl 25 mg/ Sodium (Chloride) 250 mls @ 50 mls/hr IV .Q5H DEIRDRE; Protocol Last Titration: 06/07/18 03:30 Dose: 0 mg/hr, 0 mls/hr Sodium Chloride (Sodium Chloride 0.9%) 1,000 mls @ 100 mls/hr IV .Q10H DEIRDRE Last Admin: 06/07/18 02:25 Dose: 100 mls/hr Physical Exam - Head Exam Head Exam: ATRAUMATIC, NORMAL INSPECTION, NORMOCEPHALIC - Eye Exam Eye Exam: EOMI, Normal appearance, PERRL Pupil Exam: NORMAL ACCOMODATION - ENT Exam ENT Exam: Mucous Membranes Moist, Normal Exam - Neurological Exam Neurological exam: Alert, CN II-XII Intact, Oriented x3 - Expanded Neurological Exam Expanded Patient oriented to: person, place, time Speech: Fluid Speech Cranial nerves: EOM's Intact: Normal, Facial Palsey w/Forehead Movement: Normal, Facial Palsey w/o Forehead Movement: Normal, Facial Sensation: Normal, Gag Reflex: Normal, Nystagmus: Normal, Tongue Deviation: Normal Upper motor neuron: Babinski Sign: Abnormal Right, Avelino Neglect: Normal, Pronato r Drift: Normal, Abnormal Right (paralyzed right UE), Sensory Extinction: Normal Sensory exam: Lower Extremity 2 Point Discrimination: Abnormal Left, Lower Extremity Light Touch: Abnormal Left, Lower Extremity Pin Prick: Abnormal Left, Lower Extremity Temperature: Abnormal Left, Upper Extremity 2 Point Discrimination: Abnormal Left, Upper Extremity Light Touch: Abnormal Left, Upper Extremity Pin Prick: Abnormal Left, Upper Extremity Temperature: Abnormal Left Neuro motor strength exam: Left Upper Extremity: 5, Right Upper Extremity: 0, Left Lower Extremity: 5, Right Lower Extremity: 0 DTR: Patellar Left: 2+, Patellar Right: 3+ - Psychiatric Exam Psychiatric exam: Normal Affect, Normal Mood - Skin Skin Exam: Dry, Normal Color, Warm Results - Vital Signs Recent Vital Signs: Last Vital Signs Temp 97.7 F 06/07/18 08:00 Pulse 88 06/07/18 08:00 Resp 7 L 06/07/18 08:00 BP 137/92 H 06/07/18 07:39 Pulse Ox 99 06/07/18 08:00 - Labs Result Diagrams: 06/06/18 23:53 06/06/18 23:53 Labs: Laboratory Results - last 24 hr 06/06/18 06/06/18 06/06/18 23:43 23:52 23:53 WBC 6.3 RBC 4.77 Hgb 14.5 Hct 41.7 MCV 87.4 MCH 30.4 MCHC 34.8 RDW 12.4 Plt Count 223 MPV 8.7 Neut % (Auto) 56.7 Lymph % (Auto) 29.8 [place] % (Auto) 11.6 H Eos % (Auto) 0.6 Baso % (Auto) 1.3 Neut # (Auto) 3.6 Lymph # (Auto) 1.9 [place] # (Auto) 0.7 Eos # (Auto) 0.0 Baso # (Auto) 0.1 ESR PT INR APTT Sodium Potassium Chloride Carbon Dioxide Anion Gap BUN Creatinine Est GFR ( Amer) Est GFR (Non-Af Amer) POC Glucose (mg/dL) 92 Random Glucose Hemoglobin A1c Calcium Total Bilirubin AST ALT Alkaline Phosphatase Total Creatine Kinase CK-MB (Mass) Troponin I C-Reactive Protein NT-Pro-B Natriuret Pep Total Protein Albumin Globulin Albumin/Globulin Ratio Triglycerides Cholesterol LDL Cholesterol Direct HDL Cholesterol Urine Color Urine Clarity Urine pH Ur Specific [place] Urine Protein Urine Glucose (UA) Urine Ketones Urine Blood Urine Nitrate Urine Bilirubin Urine Urobilinogen Ur Leukocyte Esterase Urine WBC (Auto) Urine RBC (Auto) Urine Opiates Screen Urine Methadone Screen Ur Barbiturates Screen Ur Phencyclidine Scrn Ur Amphetamines Screen U Benzodiazepines Scrn U Oth Cocaine Metabols U Cannabinoids Screen Blood Type A POSITIVE Antibody Screen Negative 06/06/18 06/06/18 06/06/18 23:53 23:53 23:53 WBC RBC Hgb Hct MCV MCH MCHC RDW Plt Count MPV Neut % (Auto) Lymph % (Auto) [place] % (Auto) Eos % (Auto) Baso % (Auto) Neut # (Auto) Lymph # (Auto) [place] # (Auto) Eos # (Auto) Baso # (Auto) ESR PT 11.9 INR 1.1 APTT 33 Sodium 141 Potassium 3.7 Chloride 101 Carbon Dioxide 27 Anion Gap 17 BUN 10 Creatinine 0.6 L Est GFR ( Amer) > 60 Est GFR (Non-Af Amer) > 60 POC Glucose (mg/dL) Random Glucose 120 H Hemoglobin A1c 5.1 Calcium 9.7 Total Bilirubin 0.5 AST 16 ALT 19 Alkaline Phosphatase 72 Total Creatine Kinase 60 CK-MB (Mass) 0.55 Troponin I < 0.0120 C-Reactive Protein NT-Pro-B Natriuret Pep 384 Total Protein 7.7 Albumin 4.8 Globulin 3.0 Albumin/Globulin Ratio 1.6 Triglycerides 126 D Cholesterol 223 H LDL Cholesterol Direct 137 H HDL Cholesterol 60 Urine Color Urine Clarity Urine pH Ur Specific [place] Urine Protein Urine Glucose (UA) Urine Ketones Urine Blood Urine Nitrate Urine Bilirubin Urine Urobilinogen Ur Leukocyte Esterase Urine WBC (Auto) Urine RBC (Auto) Urine Opiates Screen Urine Methadone Screen Ur Barbiturates Screen Ur Phencyclidine Scrn Ur Amphetamines Screen U Benzodiazepines Scrn U Oth Cocaine Metabols U Cannabinoids Screen Blood Type Antibody Screen 06/07/18 06/07/18 06/07/18 03:34 04:32 04:32 WBC RBC Hgb Hct MCV MCH MCHC RDW Plt Count MPV Neut % (Auto) Lymph % (Auto) [place] % (Auto) Eos % (Auto) Baso % (Auto) Neut # (Auto) Lymph # (Auto) [place] # (Auto) Eos # (Auto) Baso # (Auto) ESR 12 PT INR APTT Sodium Potassium Chloride Carbon Dioxide Anion Gap BUN Creatinine Est GFR ( Amer) Est GFR (Non-Af Amer) POC Glucose (mg/dL) 137 H Random Glucose Hemoglobin A1c Calcium Total Bilirubin AST ALT Alkaline Phosphatase Total Creatine Kinase CK-MB (Mass) Troponin I C-Reactive Protein < 5.00 NT-Pro-B Natriuret Pep Total Protein Albumin Globulin Albumin/Globulin Ratio Triglycerides Cholesterol LDL Cholesterol Direct HDL Cholesterol Urine Color Urine Clarity Urine pH Ur Specific [place] Urine Protein Urine Glucose (UA) Urine Ketones Urine Blood Urine Nitrate Urine Bilirubin Urine Urobilinogen Ur Leukocyte Esterase Urine WBC (Auto) Urine RBC (Auto) Urine Opiates Screen Urine Methadone Screen Ur Barbiturates Screen Ur Phencyclidine Scrn Ur Amphetamines Screen U Benzodiazepines Scrn U Oth Cocaine Metabols U Cannabinoids Screen Blood Type Antibody Screen 06/07/18 06/07/18 04:35 06:51 WBC RBC Hgb Hct MCV MCH MCHC RDW Plt Count MPV Neut % (Auto) Lymph % (Auto) [place] % (Auto) Eos % (Auto) Baso % (Auto) Neut # (Auto) Lymph # (Auto) [place] # (Auto) Eos # (Auto) Baso # (Auto) ESR PT INR APTT Sodium Potassium Chloride Carbon Dioxide Anion Gap BUN Creatinine Est GFR ( Amer) Est GFR (Non-Af Amer) POC Glucose (mg/dL) Random Glucose Hemoglobin A1c Calcium Total Bilirubin AST ALT Alkaline Phosphatase Total Creatine Kinase CK-MB (Mass) Troponin I C-Reactive Protein NT-Pro-B Natriuret Pep Total Protein Albumin Globulin Albumin/Globulin Ratio Triglycerides Cholesterol LDL Cholesterol Direct HDL Cholesterol Urine Color Straw Urine Clarity Clear Urine pH 7.0 Ur Specific [place] 1.039 H Urine Protein Negative Urine Glucose (UA) Normal Urine Ketones Trace Urine Blood Negative Urine Nitrate Negative Urine Bilirubin Negative Urine Urobilinogen Normal Ur Leukocyte Esterase Neg Urine WBC (Auto) < 1 Urine RBC (Auto) 1 Urine Opiates Screen Positive H Urine Methadone Screen Negative Ur Barbiturates Screen Negative Ur Phencyclidine Scrn Negative Ur Amphetamines Screen Negative U Benzodiazepines Scrn Negative U Oth Cocaine Metabols Negative U Cannabinoids Screen Negative Blood Type Antibody Screen Assessment & Plan - Assessment and Plan (Free Text) Assessment: Subarachnoid Hemorrhagic Stroke likely secondary to RCSV, cannot exclude underlying mass - CTA head/neck shows no evidence endoluminal thrombus or occlusion in intracranial arteries, patent bilateral vertebral arteries, no significant stenosis in internal carotid arteries - Head MRA shows no evidence of large aneurysm nor vascular malformation, left perisylvian branches slightly assymetrical than right side, large left posterior parietal parenchymal hematoma - Neck MRA without significant findings - Brain MRI shows large left parietal hematoma with internal layering hemorrhagic components, surrounding vasogenic edema, subarachnoid hemorrhage in left frontoparietal sulci and right posterior parieto-occipital sulci, mild mass effect - Followup head MRV - Neurology Dr. Kendall consulted. Recs appreciated. - Neurosurgery Dr. Srinivasan consulted. Recs appreciated. - no surgical intervention indicated on admission - neurocheck Q1H - Dexamethasone 10 mg IV Q6H - MRV shows No thrombus. The other possibility can be RCVS due to estrogen withdrawal. Started patient on decadron 10mg IVP, Q12H. Magnesium 2mg IV ONCE. - Consider LP and to see if there's any high protein / cytology that points to inflammation in the brain. - Transfer to tertiary care once Patient seen and case discussed in detail with Dr. Faiza Koroma PGY1
--- NOTE | 2018-06-07 15:40 | MRI ---
Date of service: 06/07/2018 PROCEDURE: MR Venography of the Brain HISTORY: Evaluate intracranial hemorrhage COMPARISON: None available. TECHNIQUE: 2D time of flight venography of the brain was performed. Rotating MIP images of the intracranial veins were generated. FINDINGS: SUPERFICIAL VEINS: Superior Sagittal Sinus: Patent. Inferior Sagittal Sinus:Patent. Transverse Sinuses: Patent. 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 Sigmoid Sinuses:Patent. DEEP VEINS: Internal Cerebral Veins: Patent. Vein of [place]: Patent. Straight Sinus: Patent. IMPRESSION: No evidence of dural venous thrombosis.
[2018-06-07] MEDS ORDERED: Magnesium Sulfate 2 GM in Sodium Chloride 0.9% 500 ML IV ONE ×2 (15:43→16:15)
[2018-06-07] MEDS ORDERED: Dexamethasone 4 mg/1 ml IV STA (15:44)
[2018-06-07] MEDS ORDERED: HYDROmorphone 1 mg/ml ISec IVP STA (19:14)
[2018-06-07 19:52] VITALS: BP 152/85; PULSE 103; RESP 8; O2SAT 97
[2018-06-07 20:22] VITALS: TEMP 98
--- NOTE | 2018-06-08 06:39 | CARD ---
APPROVED REPORT Date of service: 06/07/2018 EKG Measurement Heart [id number] <Conclusion> Poor data quality, interpretation may be adversely affected Normal sinus rhythm Normal ECG
--- NOTE | 2018-06-10 06:53 | CON ---
DATE: 06/07/2018 HISTORY OF PRESENT ILLNESS: This is a 47-year-old female, presents to the hospital with right arm and leg weakness with paresthesia starting very shortly prior to admission with headache and nausea. She had intermittent headache several days prior. CT scan showed what was consistent with a left frontoparietal hemorrhagic infarct. PAST MEDICA HISTORY: She has no significant past medical history. SOCIAL HISTORY: Denies smoking, drugs or drinking. REVIEW OF SYSTEMS: Essentially negative. PHYSICAL EXAMINATION: She has a dense right hemiplegia. She is otherwise awake, alert, and talking. She is currently obtaining MRI of the brain. She is scheduled for a repeat CT of the head. If there is no or neurologic change, then there is no indication for surgical invention. If the MRI is suggestive of a tumor, then we will readdress the situation; however, that is less likely. At this point, there is no real indication for surgical intervention. I will follow up on the MRI of the head as well as the CT, which is supposed to be done. Jonathan De Leon MD
== END 2018-06-07 20:00 | disposition short-term general hospital (02) | DRG 64 ==
LOC: C.ER 23:37 → C.9I 06-07 00:35
PROVIDERS: ADMIT Internal Medicine Pulmonary Disease; ATTEND Internal Medicine Pulmonary Disease
DX: I60.9 Nontraumatic subarachnoid hemorrhage, unspecified (principal); G93.6 Cerebral edema; G81.94 Hemiplegia, unspecified affecting left nondominant side